=== PATIENT | female | born 1930 | race Caucasian/White ===

== ENCOUNTER → 2016-10-04 | Outpatient (CLI) | payer MEDICARE, OTHER ==
[~2016-10-04] MED LIST: AROM1FL. PO; ASPI-917 PO; CALC750T4 PO; NAPR220T61 PO; POLY17PO18 PO; TRAM50TA53 PO
== END ==
LOC: WC.BC 10:34
DX: Z12.31 Encounter for screening mammogram for malignant neoplasm of breast (principal)
CPT/HCPCS: 77063; G0202

== ENCOUNTER 2018-01-20 15:06 | Inpatient (IN) ==
--- OUTSIDE RECORDS SUMMARY | 2018-01-20 18:35 | External Medical Summary ---
:1930 Author Organization [facility]. Summary purpose CCDA Sent to [facility] Chief Complaint and Reason for Visit Admit Diagnosis 1 E03.0 Problem list No authorized problems tracked for continuity of care are available for this visit. Encounters No authorized problems tracked for encounter diagnoses are available for this visit. Medications No medications recorded for this patient visit Allergies, adverse reactions, alerts Allergen Category Ingredient Status Reaction Severity Onset No Known Allergies No Known Allergies No Known Allergies Active Immunizations No immunizations recorded for this patient visit Relevant diagnostic tests and/or laboratory data No authorized results are available for this patient visit History of procedures No procedures recorded for this patient visit. Functional status No functional or cognitive status observations are available for this visit. Vital signs No authorized vital signs are available for this visit. Social history No Social History or smoking status observations were recorded for this visit. ( Unknown if ever smoked.) Treatment Plan No treatment plan text is available for this visit. Hospital discharge instructions No discharge instruction text is available for this visit.
--- OUTSIDE RECORDS SUMMARY | 2018-01-20 18:35 | External Medical Summary | Referral Summary ---
:[address] [facility] Address [address] [place] [address] Care Team Providers Name Role Phone Caty Gipson Primary Care Physician Encounter VC Date(s): 07/24/17 - 07/24/[address] [facility] [address] [place] [address], [place] [address] Discharge Disposition: 01-Home or Self Care Attending Physician: Caty Gipson MD Admitting Physician: Caty Gipson MD Vital Signs Most recent to oldest [Reference Range]: 1 Temperature Temporal Artery [36.3-37.8 degC] 36.2 degC *LOW* (07/24/17 12:36 PM) Peripheral Pulse Rate [60-100 bpm] 63 bpm (07/24/17 10:20 AM) Heart Rate Monitored [60-100 bpm] 66 bpm (07/24/17 3:24 PM) Respiratory Rate [14-20 br/min] 16 br/min (07/24/17 3:24 PM) Blood Pressure [90-140/60-90 mmHg] 110/59 mmHg (07/24/17 3:24 PM) Mean Arterial Pressure, Cuff 79 mmHg (07/24/17 3:24 PM) SpO2 94 % (07/24/17 3:24 PM) Problem List Condition Effective Dates Status Health Status Informant Allergies(Confirmed) Active Arthritis(Confirmed) Active breast lump(Confirmed)1999 Active Hyperlipidemia(Confirmed) Active Osteoporosis(Confirmed) Active 1breast biopsy, benign 1999 Allergies, Adverse Reactions, Alerts No Known Medication Allergies Medications aspirin 81 mg oral delayed release tablet 81 mg 1 tabs, Oral, Aspir-81 81 mg tablet, delayed release every day 1 every other day. Start Date: 01/05/16 Status: Orderedatenolol 25 mg oral tablet 50 mg 2 tabs, Oral, Daily Start Date: 01/05/16 Status: OrderedtraMADol 25 mg, Oral, 0 Refill(s) Start Date: 07/24/17 Status: Orderedtriamterene-hydrochlorothiazide 37.5 mg-25 mg oral capsule 0.5 tabs, Oral, Daily, 0 Refill(s) Start Date: 07/24/17 Status: Ordered Results Hematology Most recent to oldest [Reference Range]: 1 WBC [4.8-10.8 10*3/uL] 14.1 10*3/uL *HI* (07/24/17 9:40 AM) RBC [4.00-5.20] 5.10 (07/24/17 9:40 AM) Hgb [12.0-16.0 gm/dL] 15.3 gm/dL (07/24/17 9:40 AM) Hct [37.0-47.0 %] 45.3 % (07/24/17 9:40 AM) MCV [82.0-99.0 fL] 88.8 fL (07/24/17 9:40 AM) MCH [27.0-32.0 pg] 30.0 pg (07/24/17 9:40 AM) MCHC [32.0-36.0 gm/dL] 33.8 gm/dL (07/24/17 9:40 AM) RDW [11.5-14.5 %] 15.2 % *HI* (07/24/17 9:40 AM) Platelet [150-400 10*3/uL] 251 10*3/uL (07/24/17 9:40 AM) MPV [9.4-12.4 fL] 9.7 fL (07/24/17 9:40 AM) Immature Granulocytes [0.0-1.0 %] 0.4 % (07/24/17 9:40 AM) Neutrophils [51-75 %] 76 % *HI* (07/24/17 9:40 AM) Lymphocytes [20-46 %] 17 % *LOW* (07/24/17 9:40 AM) Monocytes [4-11 %] 6 % (07/24/17 9:40 AM) Eosinophils [0-4 %] 0 % (07/24/17 9:40 AM) Basophils [0-2 %] 0 % (07/24/17 9:40 AM) Neutro Absolute [1.90-7.00] 10.73 *HI* (07/24/17 9:40 AM) Lymph Absolute [0.80-3.30] 2.36 (07/24/17 9:40 AM) [place] Absolute [0.30-1.00] 0.83 (07/24/17 9:40 AM) Eos Absolute [0.00-0.50] 0.06 (07/24/17 9:40 AM) Baso Absolute [0.00-0.20] 0.03 (07/24/17 9:40 AM) Nucleated RBC Automated [0 /100 WBC] 0.0 /100 WBC (07/24/17 9:40 AM) Coagulation Most recent to oldest [Reference Range]: 1 INR [0.9-1.2] 1.1 (07/24/17 9:40 AM) PTT [25.0-35.0 seconds] 31.9 seconds (07/24/17 9:40 AM) Procedures Procedure Date Related Diagnosis Body Site Percutaneous vertebral augmentation, including 07/24/17 cavity creation (fracture reduction and bone biopsy included when performed) using mechanical device (eg, kyphoplasty), 1 vertebral body, unilateral or bilateral cannulation, inclusive of all imaging guidance Hip joint1 08/24/16 Knee replacement 2012 laparoscopic cholecystectomy2 2012 Cataract extraction 2002 breast biopsy, benign3 1999 Hysterectomy 1970 Appendectomy 1952 [id number]. See [employer].3breast lump 1999. Social History Social History Type Response Smoking Status Never smoker entered on: 01/05/16
[2018-01-20] MEDS ORDERED: WARFARIN - PHARMACY CONSULT MC ONE (18:42)
[2018-01-20 18:52] VITALS: BMI 23.6
--- NOTE | 2018-01-20 18:59 | IRU History & Physical Report ---
HPI IRU Date: Date: 01/20/18 Time: 1844 Chief complaint: I'm weak on my left side HPI: Ms. German Peguero is a very pleasant 87-year-old female from [place], [place]. Referring physician is Dinora Braun MD and her primary care physician is Caty Gipson M.D. in [place]. She lives independently in [place], [place] at [address] for the last eight years. She has been very active. She even [place] her bicycle [place] [employer] [place]. She was last spoken with by her neighbor on 01/15/2018 at 7 PM. The next morning she called a friend but she "did not sound right." Mrs. Peguero was asking repetitive questions and her voice was different. Despite that , apparently the patient got in her swimsuit and rode her bicycle to [facility] where the staff noticed that she was not behaving normally. She appeared to be pale and had to be helped down off the bicycle. EMS was contacted and she was transferred to [facility]. At that location, a right middle cerebral artery ischemic stroke was identified. She was taken urgently for thrombectomy. Patient does have history of paroxysmal atrial fibrillation and previous TIA. She was off her warfarin the past but did not want to take this because she feels it is "rat poison." At this time she is on warfarin per recommendation of Dr. Araujo. She is agreeable to take it at the present time. Prior to this event , she was on aspirin only. In addition the patient apparently has a history of probable patent foramen ovale as well as grade 1 diastolic dysfunction, chronic hypertension, chronic back pain with history of compression fractures, hypertriglyceridemia and leukocytosis. The following is a summary of studies obtained in [place]: She is admitted to [facility] on 01/16/2018. On January [address] scan showed no evidence of intracranial hemorrhage. There was nonspecific low-density foci in the white matter representing age-indeterminate microvascular changes along with generalized parenchymal volume loss. There was a hyperdense MCA sign in the right side versus intracranial atherosclerotic disease. On 01/16/2018 ultrasound of carotids showed no significant stenoses. CT angiogram on January 16, 2018 demonstrated large vessel occlusion involving the distal M1 segment on the right. Cerebral perfusion analysis demonstrated large right MCA distribution penumbra. MRI on 01/17/2018 demonstrated scattered areas of acute ischemia involving right middle cerebral artery distribution without overt evidence of hemorrhagic conversion. She was seen by Dr. Alex Araujo for cardiology and patient states that she has seen him on several occasions in the past as well. Prior to the current event the patient was independent for all activities required a grab bar for toileting and some transfers. She was very active having been involved in bicycle riding etc. on a regular basis. There are no steps necessary for her to climb at home. She does have a walker at home but does not use it. She lives independently. Current level of functioning is as follows: She requires minimum assistance for eating, supervision for grooming, maximum assistance for bathing and lower body dressing, moderate assistance for upper body dressing, total assistance for toileting and toilet transfers. She is unable to ambulate at the present time and has a flaccid left upper extremity. Also has cognitive impairment. She has significant left sided neglect. Left lower extremity is weak but she can lift it up off the bed. The patient did require intravenous amiodarone because of her atrial fibrillation with rapid ventricular response. She is on subcutaneous Lovenox and has been converted to oral amiodarone. Telemetry by the transfer service indicates that she is in sinus mechanism at present. Recommendations from [facility] indicate that she is to be on amiodarone 400 mg twice daily for 1 week then 20 mg twice daily. In addition they recommend initiating warfarin with goal of 2-3. When the INR is at that range, recommendations are to discontinue Lovenox and discontinue aspirin. Echocardiogram in [place] apparently showed preserved ejection fraction but with possible PFO with normal pulmonary artery pressures and normal right ventricular chamber size. It is not clear to me why she is not on a lipid agent at the present time. Patient states the date is Saturday (it is Saturday) but does know the year is 2018. Patient's [id number] is present throughout the interview and examination. I asked the patient specifically if she desired resuscitation in the event of an arrest and she states that she does not. The following medical conditions are noted and require active monitoring and/or management: 1. Acute right MCA cardio-embolic ischemic CVA with the following deficits: LUE is flaccid, left lower extremity is weak, cognitive impairment which is new, swallowing concerns requiring supervision. 2. Atrial fibrillation: paroxysmal 3. Hypertension 4. Diastolic heart failure The following therapies will be needed: 1. Physical therapy: for transfers and ambulation and stairs. 2. Occupational therapy: for ADL's and transfers. 3. Medical management: for the above conditions. 4. 24 hour Rehabilitation Nursing to monitor and address the following: To closely monitor her cardiac arrhythmia, diastolic dysfunction, neurologic status , blood pressures and to reduce risk of skin breakdown. PFSH 1. Benign essential hypertension 2. Paroxysmal atrial fibrillation 3. Recent cerebrovascular accident involving right middle cerebral artery affecting left side of body 4. Compression fracture of lumbar spine status post vertebroplasty 5. Grade 1 diastolic dysfunction 6. Patent foramen ovale, suspected Surgical History: 1. Bilateral total knee replacements. 2. Left total hip replacement. 3. Cholecystectomy. 4. T and A. 5. Appendectomy. 6. Hysterectomy. 7. Cystocele repair. 8. Left cataract removal Family History: Patient's father from old age. Her mother of cancer. - Social History Smoking status: Never smoker Substance use type: does not use Alcohol intake: never Alcohol intake frequency: does not drink Housing: apartment (duplex) Household members: none Current residence: Apartment/Private Home Social history: Patient's in 2005. 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 She has lived at [facility] in a duplex by herself and is handling her own finances for the past 8 years or so. Review of Systems - Constitutional Constitutional: Present: fatigue. Absent: anorexia, chills, fever(s), headache( s), lethargy, malaise, night sweats, weakness, weight gain, weight loss - EEMAT Eyes: Absent: blurry vision, change in vision, diplopia Mouth/Throat: Absent: changes in swallowing, painful swallowing, change in taste , bleeding gums, change in voice - Cardiovascular Cardiovascular: Absent: chest pain, palpitations, syncope, dyspnea on exertion, orthopnea, edema, cyanosis, heart murmur Rhythm: Present: abnormal rhythm (history of paroxysmal atrial fibrillation.) Vascular: Absent: intermittent claudication, pedal edema, unilateral swelling - Respiratory Respiratory: Absent: cough, dyspnea, hemoptysis, dyspnea on exertion, wheezing, pain on inspiration, chest congestion, excessive phlegm production - Gastrointestinal Gastrointestinal: Absent: abdominal pain, change in bowel habits, constipation, diarrhea, dyspepsia, dysphagia, early satiety, hematochezia, melena, nausea, vomiting - Genitourinary Genitourinary: Present: difficulty urinating - Musculoskeletal Musculoskeletal: Absent: abnormal gait, arthralgias, back pain, joint swelling, limited range of motion, muscle weakness - Integumentary/Breasts Integumentary: Absent: alopecia, erythema, lesions, pruritus, rash, jaundice - Neurological Neurological: Present: focal weakness. Absent: abnormal gait, abnormal movements, abnormal speech, confusion, convulsions, dizziness, frequent falls, headache(s), loss of vision, memory loss, numbness, paresthesias, tremor(s) - Psychiatric Psychiatric: Absent: abnormal sleep pattern, anxiety, depression - Endocrine Endocrine: Absent: cold intolerance, flushing, heat intolerance, palpitations - Hematologic/Lymphatic Hematologic/Lymphatic: Absent: easy bleeding, easy bruising, lymphadenopathy - Allergic/Immunologic Allergic/Immunologic: Absent: urticaria Medications Home Medications Medication Instructions Recorded Confirmed Type Acetaminophen [Tylenol] 650 mg PO Q4HR PRN 01/20/18 01/20/18 History Aspirin *EC* [Ecotrin] 1 tab PO DAILY 01/20/18 01/20/18 History Atenolol [Tenormin] 1 tab PO DAILY 01/20/18 01/20/18 History Docusate Sodium [Colace] 1 cap PO DAILY 01/20/18 01/20/18 History Enoxaparin [Lovenox] 40 mg SQ DAILY 01/20/18 01/20/18 History Sertraline HCl [Zoloft] 50 mg PO DAILY 01/20/18 01/20/18 History Tamsulosin [Flomax] 0.4 mg PO HS 01/20/18 01/20/18 History Warfarin Sodium [Coumadin] 5 mg PO HS 01/20/18 01/20/18 History Allergies Allergy/AdvReac Type Severity Reaction Status Date / Time No Known Allergies Allergy Unverified 10/27/12 15:17 Results IRU - Labs Labs: I have reviewed outside records from [facility]. Exam - Constitutional Present: no acute distress, well nourished, well developed, average body habitus , cooperative Comments: Patient is hard of hearing. - Routine HEENT Exam Head: Present: normocephalic, atraumatic. Absent: cushingoid faces, abrasion, laceration, hematoma Eye: Present: EOMI, PERRL. Absent: conjunctival icterus, scleral injection, periorbital swelling, nystagmus ENT: Present: mucous membranes dry, oropharynx clear, dentition normal - Routine Neck Exam Present: supple, full ROM, trachea midline. Absent: lymphadenopathy, thyromegaly, tenderness, swelling - Routine Chest/Breast/Axilla Exam Chest wall: Absent: tenderness, mass Axillae: Absent: lymphadenopathy, mass - Routine Respiratory Exam Present: CTA bilaterally. Absent: accessory muscle use, decreased breath sounds , prolonged expiratory phase, rales, respiratory distress, rhonchi, stridor, wheezes, crackles, distant breath sounds - Routine Cardiovascular Exam Present: RRR (at present her heart rhythm appears to be regular.), S1, S2, no murmur. Absent: gallop, S3, S4, click, irregular rhythm - Routine Abdominal Exam Present: soft, normoactive bowel sounds, non distended, non tender. Absent: rebound, guarding, firm, rigid, organomegaly, mass, hernia, wound - Routine Extremities Exam Present: no edema, non tender, pulses intact, normal capillary refill. Absent: cyanosis, clubbing - Routine Back/Spine/Pelvis Exam Back/Spine: Present: full ROM. Absent: scoliosis, kyphosis - Routine Skin Exam Present: intact, dry, warm. Absent: cyanosis, erythema, pallor, mottling, petechiae, urticaria, lesions, jaundice - Routine Neurological Exam Present: alert, motor deficit (left-sided neglect noted. Left upper extremity flaccid. Left lower extremity week. Can lift up left leg actively although not against resistance. Dorsiflexion and plantar flexion are reduced at left ankle.) , moving all extremities, facial asymmetry (slight only.). Absent: oriented X3 , CN II-XII intact (Slight droop of left side of mouth. ), normal speech ( stumbles over "[employer]") - Routine Psychiatric Exam Present: normal affect, normal thought process, cooperative. Absent: depressed , anxious Sepsis Assessment - Evaluation Severe Sepsis: none seen IRU A/P (1) Ischemic cerebrovascular accident (CVA) Current visit: Yes Status: Acute Per recommendation of Dr. Araujo, we will continue aspirin and Lovenox for the time being as well as initiate warfarin therapy. When the INR is 2-3 we will discontinue the aspirin and Lovenox. In addition we will initiate physical therapy, occupational therapy and speech therapy for a multidisciplinary approach to her recovery. (2) Hypertension Qualifiers: Hypertension type: essential hypertension Qualified Code(s): I10 - Essential (primary) hypertension Current visit: Yes Status: Chronic (3) Diastolic heart failure Qualifiers: Heart failure chronicity: chronic Qualified Code(s): I50.32 - Chronic diastolic (congestive) heart failure Current visit: Yes Status: Chronic Her lungs are clear. Diagnosis is based on echocardiogram. (4) Paroxysmal atrial fibrillation Current visit: Yes Status: Chronic Patient has history of paroxysmal atrial fibrillation. She has had rapid ventricular response in [place] which is now improved. Most recent monitor indicates normal sinus mechanism. We will monitor carefully and initiate telemetry. (5) Low back pain Qualifiers: Chronicity: chronic Back pain laterality: midline Sciatica presence: without sciatica Qualified Code(s): M54.5 - Low back pain; G89.29 - Other chronic pain Current visit: Yes Status: Chronic Has history of chronic low back pain which persists at present. She does have history of compression fracture status post vertebroplasty. Most recent MRI was in November 2017 failing to reveal an acute finding. DVT Prophylaxis: SCD's, Lovenox, Coumadin Resuscitation Status: Do Not Resuscitate - Course Hospital Course: Golden Rodriguez MD: - Interventions to Obtain Goals Goals Progress/Modifications: This patient has suffered a recent cardioembolic ischemic stroke involving the right middle cerebral artery. She is status post thrombectomy. Deficits include pocketing of food in the left side of her mouth, very mild left facial droop, flaccidity of left upper extremity, weakness of left lower extremity, and reduced cognition. We will involve physical therapy, occupational therapy and speech therapy for a multidisciplinary approach. She is medically complex in view of her atrial fibrillation and initiation of anticoagulant therapy. She is at risk for hypertension or hypotension as well as requiring monitoring of her cardiac rhythm, diastolic dysfunction and blood pressures.
--- NOTE | 2018-01-20 19:14 | IRU 24Hr Post Admit Eval ---
24 Hr Post Admission Physical - Relevant Changes Relevant Changes: No Reviewed: I have reviewed the patient's information and concur with the finding and results of the pre-admission screen. Certification: I certify the patient for rehabilitation. - Patient Condition (1) Ischemic cerebrovascular accident (CVA) Status: Acute Code(s): I63.9 - Cerebral infarction, unspecified Classification: Present on IRF Admission, IRF Tx That Should Address Diagnosis, Diagnosis Requiring Medical Follow Up (2) Hypertension Status: Chronic Qualifiers: Hypertension type: essential hypertension Qualified Code(s): I10 - Essential (primary) hypertension Code(s): I10 - Essential (primary) hypertension Classification: Present on IRF Admission, IRF Tx That Should Address Diagnosis, Diagnosis Requiring Medical Follow Up (3) Diastolic heart failure Status: Chronic Qualifiers: Heart failure chronicity: chronic Qualified Code(s): I50.32 - Chronic diastolic (congestive) heart failure Code(s): I50.30 - Unspecified diastolic (congestive) heart failure Classification: Present on IRF Admission, IRF Tx That Should Address Diagnosis, Diagnosis Requiring Medical Follow Up (4) Paroxysmal atrial fibrillation Status: Chronic Code(s): I48.0 - Paroxysmal atrial fibrillation Classification: IRF Tx That Should Address Diagnosis, Diagnosis Requiring Medical Follow Up (5) Low back pain Status: Chronic Qualifiers: Chronicity: chronic Back pain laterality: midline Sciatica presence: without sciatica Qualified Code(s): M54.5 - Low back pain; G89.29 - Other chronic pain Code(s): M54.5 - Low back pain Classification: Present on IRF Admission, IRF Tx That Should Address Diagnosis - Prior Functional Status Lives With: Alone Residence Type: Apartment/Private Home Assitive Devices: None Prior Functional Status: Indep. at home or school, Indep. w/ IADL - Current Functional Status Current Level of Function: Current level of functioning is as follows: She requires minimum assistance for eating, supervision for grooming, maximum assistance for bathing and lower body dressing, moderate assistance for upper body dressing, total assistance for toileting and toilet transfers. She is unable to ambulate at the present time and has a flaccid left upper extremity. Also has cognitive impairment. She has significant left sided neglect. Left lower extremity is weak but she can lift it up off the bed. Failed Alternative Therapy: Arrived from Acute Care Patient Requirements: The patient requires oversight by rehabilitation physician to manage their rehabilitation treatment plan and multidisciplinary approach to care that can only be provided in an IRF and requires a multidisciplinary approach to care, provided by professional PTs, OTs, STs, dieticians, RTs, rehabilitation nurses and is not available in lesser levels of care. Limitations Req: Mobility Impairment, ADL Impairment, Cognitive Impairment Speech Therapy Minutes: 60 Physical Therapy Minutes: 60 Occupational Therapy Minutes: 60 Therapy: The patient is to receive therapy at least 5 days a week. ROM Deficit: Left Upper Extremity - Complications/Comorbidities Impact on Functional Outcomes: This patient's impaired cognition may negatively impact her functional outcome. Barriers to Discharge: Weakness, Balance, Endurance, Comprehension - Plan to Avoid Complications Plan to Avoid Complications: The patient cannot receive this care in a lesser intensive setting such as [facility] or Outpatient Therapy due to the patient requiring the following : This patient requires close 24 hour rehabilitation nursing monitoring of her cardiac status to include cardiac rhythm analysis, evidence for worsening diastolic heart failure, and blood pressure management. She requires supervision with swallowing because of her tendency to pocket food in the left cheek. She requires a multidisciplinary approach with physical therapy, occupational therapy and speech therapy with medical supervision in view of these medical issues. This cannot be provided adequately at a lesser intensive level.
[2018-01-20] MEDS: ACETAMINOPHEN 325 MG TABLET PO PRN (21:31)
[2018-01-20] MEDS: AMIODARONE 200 MG TABLET PO SCH (21:31)
[2018-01-20] MEDS: TAMSULOSIN 0.4 MG CAPSULE PO SCH (21:32)
[2018-01-20] MEDS ORDERED: FALL RISK - PHARMACY CONSULT MC ONE (23:37)
[2018-01-21] MEDS ORDERED: HALOPERIDOL 5 MG/ML INJECTION IVP ONE (01:50)
[2018-01-21] MEDS ORDERED: DOCUSATE SODIUM 100 MG CAPSULE PO SCH (09:00)
[2018-01-21] MEDS ORDERED: ASPIRIN *EC* 325 MG TABLET PO SCH (09:00)
[2018-01-21] MEDS ORDERED: ENOXAPARIN 40 MG/0.4 ML INJECTION SQ SCH (09:00)
[2018-01-21] MEDS: SERTRALINE 50 MG TABLET PO SCH (09:03)
[2018-01-21] MEDS: ATENOLOL 50 MG TABLET PO SCH (09:04)
[2018-01-21] MEDS: AMIODARONE 200 MG TABLET PO SCH ×2 (09:04→22:42)
--- NOTE | 2018-01-21 10:20 | IRU Progress Note ---
- Subjective/Serverity of Illness Date: 01/21/18 Ms. Peguero was reassessed in her room in IRU. She was hard to awaken. She had a difficult night and required one on one nursing monitoring. She was confused and seemed to have visual hallucinations, requiring the use of Haldol. Today I was able to awaken her but she is not able to answer questions. She apparently did not sleep last night. Update on medical issues as follows: 1. Acute right MCA cardio-embolic ischemic CVA with the following deficits: No change in neurologic status. She is on warfarin with pharmacy to dose and monitor. 2. Atrial fibrillation: paroxysmal. I reviewed telemetry strips. She remains in normal sinus mechanism at present. 3. Hypertension: Her blood pressures remained stable at present. No overt hypotension nor hypertension identified at present. 4. Diastolic heart failure: Patient is stable in this regard. 5. Agitation, confusion, hallucinations: Etiology not clear but probably related to the CVA. Continue to monitor. 6. Leukocytosis: Patient's white count is 12,000 for uncertain reasons. No overt evidence of infection at present. Exam Vital Signs: Temperature 96.6 F L 01/21/18 08:00 Pulse Rate 59 L 01/21/18 08:00 Respiratory Rate 14 01/21/18 08:00 Blood Pressure 117/63 01/21/18 08:00 Pulse Oximetry 93 01/21/18 08:00 Height/Weight/BMI: Height 1.57 m Weight 58.6 kg Body Mass Index 23.6 - Constitutional Present: well nourished, well developed, average body habitus, agitated (last night), somnolent (currently) - Routine HEENT Exam Head: Present: normocephalic Eye: Present: EOMI ENT: Present: mucous membranes dry - Routine Neck Exam Present: supple - Routine Respiratory Exam Present: CTA bilaterally. Absent: wheezes - Routine Cardiovascular Exam Present: RRR, S1, S2, murmur - Routine Abdominal Exam Present: soft, normoactive bowel sounds, non distended. Absent: tenderness - Routine Extremities Exam Present: no edema - Routine Skin Exam Present: dry, warm - Routine Neurological Exam Present: motor deficit (LUE flaccid. Unable to assess her left leg at present. ) , altered mental status. Absent: alert, oriented X3, CN II-XII intact, hearing grossly intact (very hard of hearing. ) - Routine Psychiatric Exam Present: visual hallucinations (last night she thought she saw family members here.). Absent: normal thought process Results IRU - Labs Labs: I reviewed laboratory findings and other chart data. IRU A/P (1) Ischemic cerebrovascular accident (CVA) Current visit: Yes Status: Acute Patient has experienced a thromboembolic stroke affecting right middle cerebral artery. She is status post thrombectomy. Per recommendation of Dr. Araujo, she is on warfarin. She is also on prophylactic Lovenox and aspirin until INR is therapeutic. She developed visual hallucinations and agitation last night requiring close monitoring. Today she is somnolent but able to be awakened. She is not oriented. (2) Hypertension Qualifiers: Hypertension type: essential hypertension Qualified Code(s): I10 - Essential (primary) hypertension Current visit: Yes Status: Chronic Her blood pressures appear to be adequately controlled at present. (3) Diastolic heart failure Qualifiers: Heart failure chronicity: chronic Qualified Code(s): I50.32 - Chronic diastolic (congestive) heart failure Current visit: Yes Status: Chronic (4) Paroxysmal atrial fibrillation Current visit: Yes Status: Chronic Clinically as well as on telemetry, the patient is in sinus mechanism. (5) Low back pain Qualifiers: Chronicity: chronic Back pain laterality: midline Sciatica presence: without sciatica Qualified Code(s): M54.5 - Low back pain; G89.29 - Other chronic pain Current visit: Yes Status: Chronic DVT Prophylaxis: SCD's, Lovenox, Coumadin Resuscitation Status: Do Not Resuscitate - Course Hospital Course: Golden Rodriguez MD: 01/21/18 10:23 Difficult night with hallucinations and agitation. Somnolence this morning. Blood pressures are stable. White count elevated. Neurologically no change. - Interventions to Obtain Goals PT Treatment Plan: Balance/Proprioception, Functional Activities, Gait Training , Patient/Family Education, Therapeutic Exercise OT Treatment Plan: ADL (Basic Care), Balance Training, IADL, Pt./Family Education, Ther. Exercise for ADL Goals Progress/Modifications: Etiology of the patient's confusion and agitation is not clear. Likely this is related to her CVA. She does not display other evidence of seizure nor other evidence of neurologic change. Continues to have flaccidity of left upper extremity. I'm unable to fully assess her left lower extremity because of lack of ability to follow commands. Her vital signs are stable. Her white count is minimally elevated. No definite evidence of infection at present. We will attempt therapy today to reset her sleep schedule so that she can sleep at night. Please note that the patient's individual plan of care was developed and documented today, requiring review of therapy notes, medical conditions and anticipated functional recovery. This required additional medical decision making with regard to interaction of the patient's medical issues with the anticipated functional recovery. Please see separate document
--- NOTE | 2018-01-21 10:29 | IRU Plan of Care ---
[facility] Overall Plan of Care - Date Date: 01/21/18 - Patient Impairments (1) Ischemic cerebrovascular accident (CVA) Code(s): I63.9 - Cerebral infarction, unspecified Status: Acute Classification: Present on IRF Admission, IRF Tx That Should Address Diagnosis, Diagnosis Requiring Medical Follow Up (2) Hypertension Qualifiers: Hypertension type: essential hypertension Qualified Code(s): I10 - Essential (primary) hypertension Code(s): I10 - Essential (primary) hypertension Status: Chronic Classification: Present on IRF Admission, IRF Tx That Should Address Diagnosis, Diagnosis Requiring Medical Follow Up (3) Diastolic heart failure Qualifiers: Heart failure chronicity: chronic Qualified Code(s): I50.32 - Chronic diastolic (congestive) heart failure Code(s): I50.30 - Unspecified diastolic (congestive) heart failure Status: Chronic Classification: Present on IRF Admission, IRF Tx That Should Address Diagnosis, Diagnosis Requiring Medical Follow Up (4) Paroxysmal atrial fibrillation Code(s): I48.0 - Paroxysmal atrial fibrillation Status: Chronic Classification: IRF Tx That Should Address Diagnosis, Diagnosis Requiring Medical Follow Up (5) Low back pain Qualifiers: Chronicity: chronic Back pain laterality: midline Sciatica presence: without sciatica Qualified Code(s): M54.5 - Low back pain; G89.29 - Other chronic pain Code(s): M54.5 - Low back pain Status: Chronic Classification: Present on IRF Admission, IRF Tx That Should Address Diagnosis (6) Leukocytosis Qualifiers: Leukocytosis type: unspecified Qualified Code(s): D72.829 - Elevated white blood cell count, unspecified Code(s): D72.829 - Elevated white blood cell count, unspecified Status: Acute Classification: Present on IRF Admission, IRF Tx That Should Address Diagnosis - Relevant Changes Relevant Changes: No Reviewed: I have reviewed the patient's information and concur with the finding and results of the pre-admission screen. Certification: I certify the patient for rehabilitation. - Medical Prognosis Medical Prognosis: Good Vital Signs: Last Vital Signs Temp 96.6 F L 01/21/18 08:00 Pulse 59 L 01/21/18 08:00 Resp 14 01/21/18 08:00 BP 117/63 01/21/18 08:00 Pulse Ox 93 01/21/18 08:00 - Anticipated Interventions Anticipated Interventions: The patient requires inpatient IRF care for PT, OT, and/or ST for residuals remaining from acute right hemispheric cardio-embolic CVA resulting in muscular weakness and strength deficits. An individualized overall plan of care has been developed after careful review of the patient's preadmission screening, post admission physician evaluation and assessments of all therapy disciplines and/ or other pertinent clinicians involved in treating the patient. This indicates medical necessity and rehabilitation necessity have been established through a thorough review of all available medical information. Strength Deficits: Left Upper Extremity, Left Lower Extremity - Current Functional Status Failed Alternative Therapy: Arrived from Acute Care Patient Requires: The patient requires oversight by rehabilitation physician to manage their rehabilitation treatment plan and multidisciplinary approach to care that can only be provided in an IRF and requires a multidisciplinary approach to care, provided by professional PTs, OTs, STs, rehabilitation nurses, and may require STs, dieticians, and RTS. This is not available in lesser levels of care. Speech-Language Pathology Minutes: 60 Physical Therapy Minutes: 60 Occupational Therapy Minutes: 60 Therapy: The patient is to receive therapy at least 5 days a week. - Anticipated LOS/Outcomes Anticipated Functional Outcome: It is anticipated the patient will be neurologically stable and able to participate adequately in therapy. It is anticipated the patient will be out of perform ADLs with modified independent level of function or better. Expected functional improvements include: -- Modified independant to independant ambulation with assistive device -- Modified independant to independant ADL's with or without assistive device -- Return to pre-morbid level of mobility -- Maximize level of mobility and ADL's to decrease burden on any caregiver involved with this patient's care Anticipated Length of Stay (days): 14 Anticipated DC Destination: Home, Self Care, Home Health Service Home Safety Plan: The patient will be provided with the development of a Home Safety Plan for return to a home or home-like environment and and to ensure safety post discharge. - Plan to Avoid Complications Barriers to Attaining Goals: Weakness, Endurance, Comprehension Plan to Avoid Complications: The patient cannot receive this care in a lesser intensive setting such as Residential or Outpatient Therapy due to the patient requiring the following : This patient requires close monitoring of her cardiac rhythm in view of her paroxysmal atrial fibrillation which at times has required intravenous intervention. She requires close monitoring of her blood pressures, diastolic heart failure which currently stable as well as a multidisciplinary approach with speech therapy, occupational therapy and physical therapy. Because of her medically-complex situation with stroke and atrial fibrillation, she requires medical supervision.
--- NOTE | 2018-01-21 11:39 | Pharmacy Consult ---
Pharmacy Consult-Warfarin - Laboratory Information 01/20/18 01/21/18 01/21/18 19:15 09:38 09:38 Hgb 11.4 L Hct 33.1 L INR 2.35 H 2.95 H - Consult Information INR is in target range. Warfarin 2.5mg po ordered for noon. Will continue to monitor. Thank you.
[2018-01-21] MEDS ORDERED: WARFARIN 2.5 MG TABLET PO SCH (12:00)
--- NOTE | 2018-01-21 13:42 | Consult Note ---
Consult Information - Data of Consult Consult date: 01/21/18 Requesting Physician: Golden Rodriguez MD Primary Care Provider: Caty Gipson MD - Consult Narrative Reason for consult: medical management, right MCA CVA, a-fib History of present illness: Consuelo Peguero is an 87-year-old patient of Dr. Caty Gipson, in [place], who was directly admitted to IRU on 01/20/18 for therapies to improve function ablilities and strength following a recent CVA. She reportedly lives independently in [place] and is very active, frequently riding her bike to the [facility] where she does water aerobics weekly. On the morning of , she spoke with a friend who thought she "did not sound right." as she was asking repetitive questions and her voice was different. Despite that, apparently, Ms. Peguero got her swimsuit on and rode her bicycle to the [facility] for her water aerobic class where the staff noticed that she was not behaving normally. She reportedly appeared to be pale and had to be helped down off the bicycle. EMS was contacted and she was transferred to [facility] for further evaluation. On arrival to [facility], she was noted to have a left facial droop. Initial CT head was concerning for possible right sided CVA and she was admitted to Dr. Braun. NIH on admission was 5. Further imaging revealed an acute ischemic right MCA CVA for which she underwent successful thrombectomy for on 01/16/18. She has a known history of paroxysmal a -fib and was not anticoagulated as she reported being previously being unable to tolerate Coumadin and unable to afford other alternatives. During her acute hospitalization, she was found to be in a-fib with RVR. She was started on IV amiodarone with improvement and later changed to oral amiodarone. Unfortunately , shortly after starting the oral amiodarone, she required an additional dose of IV amiodarone due to recurrence of RVR. She was also started on Lovenox at that time for anticoagulation after discussion with the family regarding the risks and benefits of treatment, as she had only been on daily aspirin 81mg at home. In addition to the paroxysmal a-fib, she also has a history of prior TIA. Prior to discharge from [facility], per the recommendation of Dr. Araujo, she was started on Coumadin for long-term anticoagulation. Echocardiogram during her hospitalization revealed probable patent foramen ovale as well as grade 1 diastolic dysfunction with an EF of 65-70%. She was also found to have hypertriglyceridemia at 391 with a total cholesterol of 173. In addition to her previously listed medical conditions, she has a history of chronic hypertension and chronic back pain with known compression fractures. She was transferred to [facility] for further strengthening and increased functional abilities under the care of Dr. Rodriguez. The hospitalist service was consulted for medical management. 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 Paroxysmal A-fib. Hypertension. Probable PFO. History of urinary retention. Diastolic cardiac dysfunction, grade I - EF 70-75%. Depression. Constipation. High fall risk. History of chronic compression fractures with chronic back pain. Hyperlipidemia. Surgical History: 1. Bilateral total knee replacements. 2. Left total hip replacement. 3. Cholecystectomy. 4. Tonsillectomy. 5. Appendectomy. 6. Thrombectomy secondary CVA - 01/16/18. 6. Hysterectomy. 7. Cystocele repair. 8. Left cataract removal Family History: Father - , old age. Mother - , unknown cancer. Family History: As Above - Social History Smoking status: Never smoker Substance use type: does not use Alcohol intake frequency: does not drink Housing: house Household members: none Current occupational status: retired Does patient use chewing tobacco?: No Current residence: Apartment/Private Home Social history: PCP - Dr. Caty Gipson Cardio - Dr. Araujo. Neuro - Dr. Nascimento. Review of Systems Review of systems: ROS limited due to patient's increased somnolence. - Constitutional Constitutional: Present: fatigue. Absent: fever(s) - EENMT Eyes: Absent: change in vision, photophobia Nose: Absent: nosebleeds Mouth/Throat: Absent: changes in swallowing EENMT Comments: Hearing aids present. - Cardiovascular Cardiovascular: Absent: chest pain, syncope, edema Rhythm: Present: abnormal rhythm Vascular: Absent: pallor of an extermity, pedal edema, unilateral swelling - Respiratory Respiratory: Absent: cough, dyspnea - Gastrointestinal Gastrointestinal: Present: constipation. Absent: abdominal pain, diarrhea, vomiting - Genitourinary Genitourinary: Present: urinary incontinence, other (urine retention). Absent: dysuria, flank pain, hematuria Menstruation: post menopausal - Musculoskeletal Musculoskeletal: Present: back pain (chronic), muscle weakness. Absent: deformity - Integumentary/Breasts Integumentary: Absent: rash - Neurological Neurological: Present: confusion, focal weakness (left sided). Absent: convulsions, headache(s) - Psychiatric Psychiatric: Present: behavioral changes, depression - Endocrine Endocrine: Absent: flushing - Hematologic/Lymphatic Hematologic/Lymphatic: Present: easy bruising - Allergic/Immunologic Allergic/Immunologic: Absent: seasonal rhinorrhea Medications Home Medications Medication Instructions Recorded Confirmed Type Acetaminophen [Tylenol] 650 mg PO Q4HR PRN 01/20/18 01/20/18 History Aspirin *EC* [Ecotrin] 1 tab PO DAILY 01/20/18 01/20/18 History Atenolol [Tenormin] 1 tab PO DAILY 01/20/18 01/20/18 History Docusate Sodium [Colace] 1 cap PO DAILY 01/20/18 01/20/18 History Enoxaparin [Lovenox] 40 mg SQ DAILY 01/20/18 01/20/18 History Sertraline HCl [Zoloft] 50 mg PO DAILY 01/20/18 01/20/18 History Tamsulosin [Flomax] 0.4 mg PO HS 01/20/18 01/20/18 History Warfarin Sodium [Coumadin] 5 mg PO HS 01/20/18 01/20/18 History Allergies Allergy/AdvReac Type Severity Reaction Status Date / Time No Known Allergies Allergy Verified 01/20/18 19:09 Exam Vital Signs: Temperature 96.6 F L 01/21/18 08:00 Pulse Rate 59 L 01/21/18 08:00 Respiratory Rate 14 01/21/18 08:00 Blood Pressure 117/63 01/21/18 08:00 Pulse Oximetry 93 01/21/18 08:00 Telemetry Rhythm: A-fib Height/Weight/BMI: Height 5 ft 2 in Weight 129 lb 3.054 oz Body Mass Index 23.6 Comments: Patient is seen while sleeping in her recliner. She arouses briefly with loud noises and touch. Nursing reports that she has been more somnolent today as she had increased behaviors last night with little rest and received haldol x 1 dose. - Constitutional Present: no acute distress, well nourished, well developed, thin, cooperative - Routine HEENT Exam Head: Present: normocephalic, atraumatic ENT: Present: mucous membranes moist - Routine Neck Exam Present: supple, trachea midline - Routine Chest/Breast/Axilla Exam Chest wall: Absent: pacemaker - Routine Respiratory Exam Present: CTA bilaterally. Absent: respiratory distress, wheezes - Routine Cardiovascular Exam Present: irregularly irregular - Routine Abdominal Exam Present: soft, normoactive bowel sounds, non distended - Routine Extremities Exam Present: no edema, pulses intact - Routine Skin Exam Present: intact, dry, warm Comments: Afebrile. - Routine Neurological Exam Present: sensory deficit (decreased sensation to left side.), hearing grossly intact, facial asymmetry (left facial droop) Increased confusion today with increased somnolence. - Routine Psychiatric Exam Present: cooperative Comments: Increased behaviors over the night requiring Haldol x 1 dose. Today, increased sedation. Results - Labs CBC & Chem 7: 01/21/18 09:38 01/21/18 09:38 - Impressions Imaging results prior to admission: 01/16/[address]: * No intracranial hemorrhage. * Non-specific low-density foci in the white matter may represent age- indeterminate microvascular changes. * Generalized parenchymal volume loss. * Possible hyperdense MCA sign seen on right vs. intracranial atherosclerotic disease. 01/16/18 US Carotid Survey: * No sonographic evidence of hemodynamically significant stenosis. * Minimal hyperchoic plaques in the bilateral carotid arterial systems, most prominent in carotid bulbs. 01/16/18 CTA: * Large vessel occlusion involving the distal M1 segment on the right with associated lange-white differentiation loss within the anterior right frontal lobe and insula suggestive of ischemic changes. 01/16/18 Cerebral Profusion Analysis: * Large right MCA distribution penumbra. 01/17/18 MRI Brain: * Scattered areas of acute ischemia involving right middle cerebral artery distribution without evidence of hemorrhagic conversion. * Generalized volume loss. * Moderate nonspecific white matter disease likely microvascular in nature. 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 Leukocytosis - present on admission. Anemia - present on admission. Anticoagulation with warfarin, therapeutic INR (goal between 2-3). Paroxysmal A-fib with history of RVR. Hypertension. Probable PFO. History of urinary retention. Diastolic cardiac dysfunction, grade I - EF 70-75%. Depression. Constipation. High fall risk. History of chronic compression fractures with chronic back pain. Hyperlipidemia. Plan - 01/21/18 Agree with admission to IRU for strengthening and improvement in functional abilities. Monitor closely as patient is a high fall risk. Labs on admission revealed leukocytosis (WBC 12.1). Will try and obtain UA now given increase in behaviors over night. Afebrile now. Mild anemia noted - monitor periodically throughout admission. No current signs of bleeding. Monitor for signs of bleeding with current anticoagulation. Started on amiodarone 400mg BID in [place] due to a-fib with occasional RVR. Currently rate controlled a-fib. Monitor closely on telemetry. Patient to continue amiodarone 400mg BID until 01/26/18 at which time she was be decreased to 200mg BID until follow up with Dr. Araujo following discharge from IRU. INR currently therapeutic at 2.95. Pharmacy to manage. INR to be monitor daily to ensure anticoagulation is between range 2-3. Seen and evaluated by speech and no diet changes recommended at this time. Monitor closely for signs of aspiration. Monitor daily blood pressure and heart rate closely. Goal blood pressure <180 SBP. Continue atenolol 50mg daily. Hydralazine PRN SBP >160 SBP. Monitor mood closely for signs of depression and behavioral changes. Continue Zoloft. Bowel motivation given history of constipation and no recent BM noted. Will recheck labs in AM to monitor blood counts, electrolytes and renal function. Upon discharge, patient's care to be returned to her PCP, Dr. Caty Gipson. Patient is a DNR. 01/21/2018-8:45 PM-I examined the patient independently. I reviewed this chart, the patient history, and the GLOVE BRUSHER's/PA's documented findings as above. We discussed and formulated the assessment and plan as above with the additions below.-Dr. Hernandez The patient was seen this evening in her room. She is sleeping soundly. I did not try to awaken her. Her nurse stated that last night she became very agitated and was trying to hit the nurses and trying to climb out the window. She was given Haldol and has been fairly somnolent most of the day. Her nurse states she was able to participate with therapy and was able to go to the dining room to eat all of her meals, but when she wasn't stimulated she fell asleep. On exam she is sleeping comfortably and is in no acute distress. Chest is clear to auscultation. Cardiovascular reveals a regular rate and rhythm. Abdomen is soft and nontender. Extremities are free of edema. Skin is warm and dry and without rashes. Urinalysis was obtained today due to aggressive behaviors. Nitrate was positive , leukocyte esterase +1, RBCs 50-200, white blood cells 50-200, few white blood cell clumps, 4+ bacteria. Culture was initiated. Impression and plan Right MCA stroke secondary to thrombus. Status post thrombectomy 01/16/2018. Patient was started on Lovenox and Coumadin. INR has been therapeutic for 2 days. Lovenox was discontinued. Agitation-patient received Haldol last night and has been somnolent today. UTI-start Keflex and check urine culture with sensitivity Paroxysmal A. fib-continue amiodarone Hypertension-monitor blood pressure DVT Prophylaxis: Coumadin Resuscitation Status: Do Not Resuscitate - Time spent with patient Time with patient PN: 70 minutes - Physician Narrative Physician: Joy Hernandez MD Narrative: Date: 01/21/18 Time: 1337 Hospital Course Summary Disclaimer: The visit summary below is not to be considered part of the above Progress Note. Hospital Course: Plan - 01/21/18 Agree with admission to IRU for strengthening and improvement in functional abilities. Monitor closely as patient is a high fall risk. Labs on admission revealed leukocytosis (WBC 12.1). Will try and obtain UA now given increase in behaviors over night. Afebrile now. Mild anemia noted - monitor periodically throughout admission. No current signs of bleeding. Monitor for signs of bleeding with current anticoagulation. Started on amiodarone 400mg BID in [place] due to a-fib with occasional RVR. Currently rate controlled a-fib. Monitor closely on telemetry. Patient to continue amiodarone 400mg BID until 01/26/18 at which time she was be decreased to 200mg BID until follow up with Dr. Araujo following discharge from IRU. INR currently therapeutic at 2.95. Pharmacy to manage. INR to be monitor daily to ensure anticoagulation is between range 2-3. Seen and evaluated by speech and no diet changes recommended at this time. Monitor closely for signs of aspiration. Monitor daily blood pressure and heart rate closely. Goal blood pressure <180 SBP. Continue atenolol 50mg daily. Hydralazine PRN SBP >160 SBP. Monitor mood closely for signs of depression and behavioral changes. Continue Zoloft. Bowel motivation given history of constipation and no recent BM noted. Will recheck labs in AM to monitor blood counts, electrolytes and renal function. Upon discharge, patient's care to be returned to her PCP, Dr. Caty Gipson. Patient is a DNR.
[2018-01-21] MEDS ORDERED: HYDRALAZINE 20 MG/ML INJECTION IVP PRN (15:06)
--- NOTE | 2018-01-21 16:05 | XRay Report ---
Indication: recent CVA, leukocytosis PROCEDURE: XR chest 1V: Encounter: Initial Comparison: October 30, 2012 Findings: The lungs are clear without focal airspace consolidation. There is no pleural effusion or pneumothorax. The heart size, pulmonary vascularity and mediastinal contours are unchanged. IMPRESSION: No acute cardiopulmonary disease. .
[2018-01-21] MEDS: TAMSULOSIN 0.4 MG CAPSULE PO SCH (22:42)
[2018-01-21] MEDS: ACETAMINOPHEN 325 MG TABLET PO PRN (22:42)
[2018-01-21] MEDS: SENNA + DOCUSATE TABLET PO SCH (22:43)
[2018-01-22] MEDS: SALINE FLUSH 10ml SYRINGE IV PRN ×2 (06:55→15:27)
[2018-01-22] MEDS: POLYETHYL GLYCOL 3350 17gm PACKET PO SCH (08:53)
[2018-01-22] MEDS: SERTRALINE 50 MG TABLET PO SCH (08:54)
[2018-01-22] MEDS: AMIODARONE 200 MG TABLET PO SCH ×2 (08:54→21:45)
[2018-01-22] MEDS: ATENOLOL 50 MG TABLET PO SCH (08:55)
[2018-01-22] MEDS: ACETAMINOPHEN 325 MG TABLET PO PRN (08:57)
[2018-01-22] MEDS: SENNA + DOCUSATE TABLET PO SCH ×2 (08:57→21:46)
--- NOTE | 2018-01-22 14:45 | Pharmacy Consult ---
Pharmacy Consult-Warfarin - Laboratory Information 01/20/18 01/21/18 01/21/18 19:15 09:38 09:38 Hgb 11.4 L Hct 33.1 L INR 2.35 H 2.95 H AST ALT Albumin 01/22/18 01/22/18 01/22/18 13:39 13:39 13:39 Hgb 11.3 L Hct 32.8 L INR 2.58 H AST 27 ALT 23 Albumin 3.8 - Consult Information COUMADIN CONSULT (Recurring): 87 yr old female pt 5'2" 58.6 kg admitted to IRU for PT, OT and ST post acute right hemispheric cardio-embolic CVA causing muscular weakness and strength deficits. She has A-Fib and has recently been started on Warfarin for anticoagulation. Admit INR = 2.35 She also began Cephalexin 500 mg po q12hrs for a UTI. The antibiotic can cause the INR to increase. DATE INR DOSE 01/21 2.95 2.5 MG 01/22 2.58 Will give 2.5 MG Warfarin today Pharmacy will continue to monitor the INR and adjust the warfarin dose accordingly. Thank you. Leatha Simpson, PharmD
[2018-01-22] MEDS ORDERED: WARFARIN 2.5 MG TABLET PO SCH (15:00)
[2018-01-22] MEDS: TAMSULOSIN 0.4 MG CAPSULE PO SCH (21:46)
--- NOTE | 2018-01-23 07:09 | Pharmacy Consult ---
Pharmacy Consult-Warfarin - Laboratory Information 01/20/18 01/21/18 01/21/18 19:15 09:38 09:38 Hgb 11.4 L Hct 33.1 L INR 2.35 H 2.95 H AST ALT Albumin 01/22/18 01/22/18 01/22/18 13:39 13:39 13:39 Hgb 11.3 L Hct 32.8 L INR 2.58 H AST 27 ALT 23 Albumin 3.8 01/23/18 05:15 Hgb Hct INR 3.09 H AST ALT Albumin - Consult Information COUMADIN CONSULT: Day 3 87 yr old female pt 5'2" 58.6 kg admitted to IRU for PT, OT and ST post acute right hemispheric cardio-embolic CVA causing muscular weakness and strength deficits. She has A-Fib and has recently been started on Warfarin for anticoagulation. Admit INR = 2.35 She also began Cephalexin 500 mg po q12hrs for a UTI. The antibiotic can cause the INR to increase. DATE INR DOSE 01/21 2.95 2.5 MG 7/4 2.58 2.5 MG 7/5 3.09 Hold Pharmacy will continue to monitor the INR and adjust the warfarin dose accordingly. Thank you, Miguel Ocampo, Pharmacist
[2018-01-23] MEDS: POLYETHYL GLYCOL 3350 17gm PACKET PO SCH (08:09)
[2018-01-23] MEDS: SERTRALINE 50 MG TABLET PO SCH (08:12)
[2018-01-23] MEDS: ATENOLOL 50 MG TABLET PO SCH (08:12)
[2018-01-23] MEDS: ACETAMINOPHEN 325 MG TABLET PO PRN ×2 (08:12→19:56)
[2018-01-23] MEDS: AMIODARONE 200 MG TABLET PO SCH ×3 (08:12→23:37)
[2018-01-23] MEDS: SENNA + DOCUSATE TABLET PO SCH ×3 (08:12→23:37)
--- NOTE | 2018-01-23 10:35 | IRU Progress Note ---
- Subjective/Serverity of Illness Date: 01/23/18 Consuelo was interviewed and examined in her room with the patient's daughter present. She is cooperative with therapy. She continually asks if she can go home. Remains oblivious to her left side which is the affected side from her stroke. Has substantial left-sided neglect which was tested today with confrontation. Pupils are equal. There is slight left facial droop. According to her daughter, the patient spontaneously moved her left arm up quite a bit today or yesterday. Today she is attempting to move the left arm indicating some proximal movement only. Left lower extremity was tested. She is stronger on extension at the knee and then she is on flexion at the knee. Sit to stand is performed with minimum assistance. She is working on the parallel bars. Upper body dressing requires maximum assistance for lower body dressing requires total assistance. She is followed by speech therapy. She does demonstrate impulsive eating in a rapid rate. She is on a regular diet with chopped meats. She requires supervision for eating. Patient's blood pressures are reviewed and are stable. There is no evidence of new neurologic change. Her INR is therapeutic at 3.09. Exam Vital Signs: Temperature 98.3 F 01/23/18 07:36 Pulse Rate 67 01/23/18 07:36 Respiratory Rate 16 01/23/18 07:36 Blood Pressure 129/54 01/23/18 07:36 Pulse Oximetry 93 01/23/18 07:36 Height/Weight/BMI: Height 1.57 m Weight 59.9 kg Body Mass Index 23.6 - Constitutional Present: no acute distress, well nourished, well developed Comments: Patient appears to be oblivious to her situation. She believes that she can go home at the present time. - Routine HEENT Exam Eye: Present: EOMI ENT: Present: mucous membranes moist, oropharynx clear - Routine Neck Exam Present: supple - Routine Respiratory Exam Present: decreased breath sounds, CTA bilaterally. Absent: wheezes - Routine Cardiovascular Exam Present: RRR, S1, S2. Absent: murmur - Routine Abdominal Exam Present: soft, normoactive bowel sounds, non distended. Absent: tenderness - Routine Extremities Exam Present: no edema, normal capillary refill - Routine Skin Exam Present: dry, warm - Routine Neurological Exam Present: alert, motor deficit (some mild movement of left upper extremity proximal muscles noted. Left lower extremity demonstrates greater strength on extension than on flexion at the knee. No edema noted.). Absent: oriented X3, CN II-XII intact - Routine Psychiatric Exam Absent: good insight, good judgment (Seems oblivious to her situation. ) Results IRU - Labs Labs: Reviewed telemetry strips which demonstrated normal sinus mechanism. IRU A/P (1) Ischemic cerebrovascular accident (CVA) Current visit: Yes Status: Acute Neurologically she seems to be showing some movement in left upper extremity although minimal. Is cooperative with therapy but seems to be oblivious as to her toes situation. Has a significant left sided neglect. (2) Hypertension Qualifiers: Hypertension type: essential hypertension Qualified Code(s): I10 - Essential (primary) hypertension Current visit: Yes Status: Chronic Blood pressures seem well controlled at present. (3) Diastolic heart failure Qualifiers: Heart failure chronicity: chronic Qualified Code(s): I50.32 - Chronic diastolic (congestive) heart failure Current visit: Yes Status: Chronic Lungs are clear (4) Paroxysmal atrial fibrillation Current visit: Yes Status: Chronic Telemetry demonstrates normal sinus mechanism. Remains on therapeutic dose of warfarin. (5) Low back pain Qualifiers: Chronicity: chronic Back pain laterality: midline Sciatica presence: without sciatica Qualified Code(s): M54.5 - Low back pain; G89.29 - Other chronic pain Current visit: Yes Status: Chronic (6) Leukocytosis Qualifiers: Leukocytosis type: unspecified Qualified Code(s): D72.829 - Elevated white blood cell count, unspecified Current visit: Yes Status: Resolved White count is improved to normal at present. DVT Prophylaxis: Coumadin Resuscitation Status: Do Not Resuscitate - Course Hospital Course: Golden Rodriguez MD: 01/21/18 10:23 Difficult night with hallucinations and agitation. Somnolence this morning. Blood pressures are stable. White count elevated. Neurologically no change. 01/23/18 10:42 White count resolved to normal. She is more awake and alert. Dense left-sided neglect. Cooperative with therapy. - Interventions to Obtain Goals PT Treatment Plan: Balance/Proprioception, Functional Activities, Gait Training , Patient/Family Education, Therapeutic Exercise OT Treatment Plan: ADL (Basic Care), Balance Training, IADL, Pt./Family Education, Ther. Exercise for ADL
[2018-01-23] MEDS: SALINE FLUSH 10ml SYRINGE IV PRN ×2 (11:00→19:55)
[2018-01-23] MEDS: TAMSULOSIN 0.4 MG CAPSULE PO SCH ×2 (19:55→23:37)
--- NOTE | 2018-01-24 08:04 | Pharmacy Consult ---
Pharmacy Consult-Warfarin - Laboratory Information 01/20/18 01/21/18 01/21/18 19:15 09:38 09:38 Hgb 11.4 L Hct 33.1 L INR 2.35 H 2.95 H AST ALT Albumin 01/22/18 01/22/18 01/22/18 13:39 13:39 13:39 Hgb 11.3 L Hct 32.8 L INR 2.58 H AST 27 ALT 23 Albumin 3.8 01/23/18 01/24/18 05:15 05:39 Hgb Hct INR 3.09 H 2.72 H AST ALT Albumin - Consult Information Warfarin 2mg ordered for noon today. Will continue to monitor. Thank you.
[2018-01-24] MEDS: AMIODARONE 200 MG TABLET PO SCH ×2 (08:28→20:00)
[2018-01-24] MEDS: POLYETHYL GLYCOL 3350 17gm PACKET PO SCH (08:29)
[2018-01-24] MEDS: SENNA + DOCUSATE TABLET PO SCH ×2 (08:29→20:00)
[2018-01-24] MEDS: ATENOLOL 50 MG TABLET PO SCH (08:29)
[2018-01-24] MEDS: SERTRALINE 50 MG TABLET PO SCH (08:30)
--- NOTE | 2018-01-24 11:09 | IRU Progress Note ---
- Subjective/Serverity of Illness Date: 01/24/18 Consuelo was reassess in her room on inpatient rehabilitation. She is cooperative with therapy but again asks me if she can be dismissed to her home. Continues to be somewhat oblivious to her left-sided weakness. From a medical standpoint, her blood pressures remained stable. She remains on warfarin with therapeutic INR. She denies any sensation of palpitations or shortness of breath. I reviewed her telemetry strips which now look as though she is back in atrial fibrillation. However this appears to be asymptomatic. Her INR is doing well and managed by pharmacy. She is co-treated by PT and OT. She is making progress. She still requires maximum to total assist for dressing. She is improving with regard to sitting balance. Speech therapy working with patient and monitoring her during mealtime. She continues to be impulsive and tends to eat fast. She requires verbal cues to slow down. Previously noted urinary tract infection growing Escherichia coli and treated with cephalexin. Remains afebrile. Exam Vital Signs: Temperature 98.3 F 01/24/18 08:00 Pulse Rate 86 01/24/18 08:00 Respiratory Rate 18 01/24/18 08:00 Blood Pressure 100/61 01/24/18 10:08 Pulse Oximetry 93 01/24/18 08:00 Height/Weight/BMI: Height 1.57 m Weight 59.9 kg Body Mass Index 23.6 - Constitutional Present: no acute distress, well nourished, well developed, cooperative Comments: Patient is oriented to day to place, year and who the president is. She is awake and alert. Continues to be hard of hearing of course. She is cooperative but continues to believe that she can go home. - Routine HEENT Exam Eye: Present: EOMI ENT: Present: mucous membranes moist, oropharynx clear - Routine Neck Exam Present: supple - Routine Respiratory Exam Present: CTA bilaterally. Absent: wheezes - Routine Cardiovascular Exam Present: S1, S2, irregularly irregular. Absent: murmur - Routine Abdominal Exam Present: soft, normoactive bowel sounds, non distended. Absent: tenderness - Routine Extremities Exam Present: no edema, normal capillary refill - Routine Skin Exam Present: dry, warm - Routine Neurological Exam Present: alert, oriented X3, motor deficit (has more purposeful and is stronger movement of the left arm. She is lying supine and was able to raise it up independently straight to the ceiling. This is a significant improvement. Left lower extremity continues to be weak.). Absent: CN II-XII intact - Routine Psychiatric Exam Present: normal affect, cooperative. Absent: good insight, good judgment Results IRU - Labs Labs: Have reviewed laboratory notes as well as telemetry strips. IRU A/P (1) Ischemic cerebrovascular accident (CVA) Current visit: Yes Status: Acute Improved movement of left upper extremity noted. Working on sitting balance. (2) Hypertension Qualifiers: Hypertension type: essential hypertension Qualified Code(s): I10 - Essential (primary) hypertension Current visit: Yes Status: Chronic Blood pressures slightly low at present. Asymptomatic however. (3) Diastolic heart failure Qualifiers: Heart failure chronicity: chronic Qualified Code(s): I50.32 - Chronic diastolic (congestive) heart failure Current visit: Yes Status: Chronic Lungs remain clear and without evidence of overt failure. (4) Paroxysmal atrial fibrillation Current visit: Yes Status: Chronic Telemetry strips reviewed and indicate recurrence of atrial fibrillation with controlled response. (5) Low back pain Qualifiers: Chronicity: chronic Back pain laterality: midline Sciatica presence: without sciatica Qualified Code(s): M54.5 - Low back pain; G89.29 - Other chronic pain Current visit: Yes Status: Chronic (6) Leukocytosis Qualifiers: Leukocytosis type: unspecified Qualified Code(s): D72.829 - Elevated white blood cell count, unspecified Current visit: Yes Status: Resolved DVT Prophylaxis: Coumadin Resuscitation Status: Do Not Resuscitate - Course Hospital Course: Golden Rodriguez MD: 01/21/18 10:23 Difficult night with hallucinations and agitation. Somnolence this morning. Blood pressures are stable. White count elevated. Neurologically no change. 01/23/18 10:42 White count resolved to normal. She is more awake and alert. Dense left-sided neglect. Cooperative with therapy. 01/24/18 11:11 Neurologically improved with better movement of left upper extremity. Cooperative with therapy. Continues to believe that she can go home anytime. UTI treated with cephalexin and tolerated well. Blood pressures a bit low. - Interventions to Obtain Goals PT Treatment Plan: Balance/Proprioception, Functional Activities, Gait Training , Patient/Family Education, Therapeutic Exercise OT Treatment Plan: ADL (Basic Care), Balance Training, IADL, Pt./Family Education, Ther. Exercise for ADL Goals Progress/Modifications: Reviewed patient's overall status. She appears to be stable and able to tolerate 3 hours of therapy daily. She has increased strength in the left upper extremity. She is working on sitting balance. While she is cooperative, she continues to believe that she can go home any time and appears to be unaware of her total overall situation. Blood pressures are running a bit low and will be monitored carefully.
[2018-01-24] MEDS ORDERED: WARFARIN 2 MG TABLET PO SCH (12:00)
--- NOTE | 2018-01-24 13:39 | IRU Team Meeting ---
IRU Team Meeting - Nursing Bladder Assistive Devices Utilized:: Absorbent Pad Bladder Management Level of Assist: Stand By Assist/Supervision Bowel Assistive Devices Utilized:: Medication, Absorbent Pad Bowel Management Level of Assist: Stand By Assist/Supervision Vital Signs: Vital Signs - 24 hr 01/23/18 15:36 01/23/18 16:00 01/23/18 19:50 Temperature 98.0 F 98.1 F Pulse Rate 68 65 63 Respiratory Rate 14 28 H Blood Pressure 126/61 142/67 H Pulse Oximetry 93 95 01/24/18 00:00 01/24/18 02:41 01/24/18 08:00 Temperature 98.3 F Pulse Rate 67 69 86 Respiratory Rate 18 Blood Pressure 94/59 Pulse Oximetry 93 01/24/18 10:08 Temperature Pulse Rate Respiratory Rate Blood Pressure 100/61 Pulse Oximetry Current Medications: Acetaminophen (Tylenol) 650 mg PO Q4HR PRN PRN Reason: Pain Last Admin: 01/23/18 19:56 Dose: 650 mg Amiodarone HCl (Pacerone) 400 mg PO BID [facility] Stop: 01/26/18 23:59 Last Admin: 01/24/18 08:28 Dose: 400 mg Amiodarone HCl (Pacerone) 200 mg PO BID [facility] Atenolol (Tenormin) 50 mg PO DAILY [facility] Last Admin: 01/24/18 08:29 Dose: 50 mg Cephalexin HCl (Keflex 500 Mg) 500 mg PO Q12HR [facility] Last Admin: 01/24/18 08:28 Dose: 500 mg Hydralazine HCl (Apresoline) 5 mg IVP Q6H PRN Magnesium Hydroxide (Mom) 30 ml PO DAILY PRN PRN Reason: Constipation Polyethylene Glycol (Miralax) 17 gm PO DAILY [facility] Last Admin: 01/24/18 08:29 Dose: Not Given Senna/Docusate Sodium (Senna Plus Tablet) 1 tab PO BID [facility] Last Admin: 01/24/18 08:29 Dose: 1 tab Sertraline HCl (Zoloft) 50 mg PO DAILY [facility] Last Admin: 01/24/18 08:30 Dose: 50 mg Sodium Chloride (Iv Flush) 10 ml IV PRN PRN PRN Reason: Flushing Last Admin: 01/23/18 19:55 Dose: 10 ml Tamsulosin HCl (Flomax) 0.4 mg PO HS [facility] Last Admin: 01/23/18 23:37 Dose: Not Given Warfarin Sodium (Coumadin Protocol) 0 MC NOTE [facility] Current Medical Issues: Recent CVA, atrial fibrillation with need for anticoagulation, hypertension, urinary tract infection Comments: I certify that I personally led the interdisciplinary team meeting and agree with comments, barriers and goals indicated. Team meeting was held in the patient's room with the patient and the following family members present: patient's daughter and patient's [id number] Ms. Peguero has had recent diagnosis of urinary tract infection with Escherichia coli. Patient is on cephalexin. She remains afebrile. Her blood pressures are running slightly on the low side. Her INR is therapeutic. She was in sinus mechanism and now is in atrial fibrillation with controlled ventricular response. - Speech Therapy Speech therapy is working with the patient. Patient is impulsive and requires slowing down with eating. She is working on left-sided neglect and cognition. - Physical Therapy Bed, Chair, Wheelchair Transfer Assist: Total Assistance, 2 or More Person Assist Ambulation Ability: Total Assistance Ambulation Distance: 1 Wheelchair Propulsion Ability: Total Assistance Wheelchair Propulsion Distance: 36 Stair Climbing Ability: Patient Unsafe/Unable Car Transfer Ability: Patient Unsafe/Unable Comments: Patient is being co-treated with physical therapy and occupational therapy to maintain patient and staff safety. In addition she is being co-treated in order to maximize the benefit to the patient because of her easy fatigability. She is improving with physical therapy and working on core muscle strengthening and dynamic balance. There is some movement of the left arm which is encouraging. She requires maximum verbal cues to follow commands especially when addressed from the left side. - Occupational Therapy Eating Ability: Stand By Assist/Supervision Grooming Ability: Minimal Assistance Bathing Ability: Total Assistance Upper Body Dressing Ability: Total Assistance Lower Body Dressing Ability: Total Assistance Tub Transfer Assist: Patient Unsafe/Unable Toileting Assist: Total Assistance Toilet Transfer Assist: Total Assistance, 2 or More Person Assist Comments: Patient is demonstrating non-purposeful movements of the left upper extremity. However she is showing progress toward goals and requires total assistance for dressing and toileting. - Goals Physical Therapy Goals: 01/24/18 Goals: 1.) Transfers with moderate assistance. 2.) Correct midline orientation in standing with 1 verbal cue and sustain for one minute. Occupational Therapy Goals: OT goals 01/24/18: 1.) Upper body dressing with minimal assistance. 2.) Lower body dressing with moderate assistance. 3.) Transfer to toilet with moderate assistance. 4.) Increase left upper body strength/ROM Speech Therapy Goals: Cogn-ling Goals: Pt will identify that a problem exists in a picture & verbally presented situations with 80% accuracy requiring mild cues. Pt will provide appropriate solutions for given problems with 80% accuracy requiring mild cues. Dysphagia: Pt will consume a regular consistency with thin liquids without outward signs of aspiration at bedside in 85% of trials. Pt will implement compensatory feeding strategies (alternate liquids/solid & slow pacing) in 80% of feeding trials /meals with minimal cues to aid recall. Pt will demonstrate self awareness when answering questions regarding situation information and etiology given minimal cues. Pt will verbalize general knowledge regarding stroke and its effect with minimal cues. Pt will demonstrate sustained attention during a 30 min treatment session requiring minimal cues. Pt will demonstrate awareness of objects in left visual filed dueing therapy session requiring minimal cues. Pt will visually scan left to right during reading and writing tasks with minimal assistance. - Barriers to Discharge Barriers to Attaining Goals: Balance (to address balance, increasing core muscle strength and balance and proprioceptive exercises are offered.), Medical Limitation (left-sided neglect is significant. Forced use and activities on the left side are promoted. In addition patient has lack of coordination and in this regard coronation activities are offered.) - Care Plan Anticipated Length of Stay (days): 14 Anticipated Length of Stay: Reassess in one week Anticipated DC Destination: Home, Self Care, Home Health Service I have led this team conference and agree with the plan. Interventions/Goals: Patient has made slow progress. She continually asks when she can go home. Cognition is a significant issue. However patient is making progress with both speech therapy and occupational therapy as well as physical therapy and continues to qualify for inpatient rehabilitation.
[2018-01-24] MEDS: ACETAMINOPHEN 325 MG TABLET PO PRN ×2 (15:38→20:01)
--- NOTE | 2018-01-24 17:02 | Progress Note ---
- Date 01/24/18 Subjective: Consuelo was sleeping comfortably at the time of my visit but multiple family members were present and able to update me on her progress. They state that when she falls asleep she is very difficult to wake up. She's been very tired but also working hard with therapy. She just received Tylenol for back pain. She has not c/o urinary sx despite known UTI. They report that she tends to prefer looking towards the right so they were instructed to sit on her left side to try to encourage her to look towards the left. Objective Vital signs: Temperature 98.3 F 01/24/18 16:00 Pulse Rate 63 01/24/18 16:00 Respiratory Rate 14 01/24/18 16:00 Blood Pressure 97/50 01/24/18 16:00 Pulse Oximetry 92 01/24/18 16:00 Height/Weight/BMI: Height 1.57 m Weight 59.9 kg Body Mass Index 23.6 - Constitutional Present: other (sleeping comfortably) - Routine HEENT Exam Head: Present: normocephalic ENT: Present: mucous membranes dry - Routine Respiratory Exam Present: CTA bilaterally - Routine Cardiovascular Exam Present: RRR, S1, S2 - Routine Abdominal Exam Present: soft, normoactive bowel sounds, non distended, non tender - Routine Extremities Exam Present: no edema - Routine Skin Exam Present: dry, pallor, warm - Routine Psychiatric Exam Present: unable to assess Results - Labs CBC & Chem 7: 01/22/18 13:39 01/24/18 05:39 Microbiology Results: Microbiology 01/21/18 16:35 Urine, Voided (Cc/notcc) Urine Culture - Final Escherichia coli Assessment and Plan Assessment and Plan: Assessment: 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 Leukocytosis - present on admission - resolved. Anemia - present on admission. E. coli UTI Hypokalemia Anticoagulation with warfarin, therapeutic INR (goal between 2-3). Paroxysmal A-fib with history of RVR. Hypertension. Probable PFO. History of urinary retention. Diastolic cardiac dysfunction, grade I - EF 70-75%. Depression. Constipation. High fall risk. History of chronic compression fractures with chronic back pain. Hyperlipidemia. Plan - 01/24/18 PAF - pt was in A-fib from about [id number] today. Currently back in NSR. Cont Coumadin, amiodarone, atenolol -- however BP has been running low today; will decrease dosing of atenolol to 25 mg daily; hold if SBP <110. Amiodarone to be decreased to 200 mg BID on 01/27. Cont cephalexin for pansensitive E. coli UTI to complete 5 day course. K 3.5 - KDur 20 mEq x1. INR therapeutic. Continue therapy per Dr. Rodriguez. DVT Prophylaxis: Coumadin Resuscitation Status: Do Not Resuscitate - Physician Narrative Narrative: Date: 01/24/18 Time: 1655 Hospital Course Summary Disclaimer: The visit summary below is not to be considered part of the above Progress Note. Hospital Course: Plan - 01/21/18 Agree with admission to IRU for strengthening and improvement in functional abilities. Monitor closely as patient is a high fall risk. Labs on admission revealed leukocytosis (WBC 12.1). Will try and obtain UA now given increase in behaviors over night. Afebrile now. Mild anemia noted - monitor periodically throughout admission. No current signs of bleeding. Monitor for signs of bleeding with current anticoagulation. Started on amiodarone 400mg BID in [place] due to a-fib with occasional RVR. Currently rate controlled a-fib. Monitor closely on telemetry. Patient to continue amiodarone 400mg BID until 01/26/18 at which time she was be decreased to 200mg BID until follow up with Dr. Araujo following discharge from IRU. INR currently therapeutic at 2.95. Pharmacy to manage. INR to be monitor daily to ensure anticoagulation is between range 2-3. Seen and evaluated by speech and no diet changes recommended at this time. Monitor closely for signs of aspiration. Monitor daily blood pressure and heart rate closely. Goal blood pressure <180 SBP. Continue atenolol 50mg daily. Hydralazine PRN SBP >160 SBP. Monitor mood closely for signs of depression and behavioral changes. Continue Zoloft. Bowel motivation given history of constipation and no recent BM noted. Will recheck labs in AM to monitor blood counts, electrolytes and renal function. Upon discharge, patient's care to be returned to her PCP, Dr. Caty Gipson. Patient is a DNR. 01/24/18 PAF - pt was in A-fib from about [id number] today. Currently back in NSR. Cont Coumadin, amiodarone, atenolol -- however BP has been running low today; will decrease dosing of atenolol to 25 mg daily; hold if SBP <110. Amiodarone to be decreased to 200 mg BID on 01/27. Cont cephalexin for pansensitive E. coli UTI to complete 5 day course. K 3.5 - KDur 20 mEq x1. INR therapeutic.
[2018-01-24] MEDS: TAMSULOSIN 0.4 MG CAPSULE PO SCH (20:00)
[2018-01-24] MEDS: SALINE FLUSH 10ml SYRINGE IV PRN (20:02)
--- NOTE | 2018-01-25 07:39 | Pharmacy Consult ---
Pharmacy Consult-Warfarin - Laboratory Information 01/20/18 01/21/18 01/21/18 19:15 09:38 09:38 Hgb 11.4 L Hct 33.1 L INR 2.35 H 2.95 H AST ALT Albumin 01/22/18 01/22/18 01/22/18 13:39 13:39 13:39 Hgb 11.3 L Hct 32.8 L INR 2.58 H AST 27 ALT 23 Albumin 3.8 01/23/18 01/24/18 01/25/18 05:15 05:39 04:42 Hgb Hct INR 3.09 H 2.72 H 2.51 H AST ALT Albumin - Consult Information Warfarin 2mg po today at noon ordered. Thanks
[2018-01-25] MEDS: ATENOLOL 25 MG TABLET PO SCH (08:22)
[2018-01-25] MEDS: AMIODARONE 200 MG TABLET PO SCH ×2 (08:34→20:36)
[2018-01-25] MEDS: ACETAMINOPHEN 325 MG TABLET PO PRN (08:34)
[2018-01-25] MEDS: SERTRALINE 50 MG TABLET PO SCH (08:34)
[2018-01-25] MEDS: POLYETHYL GLYCOL 3350 17gm PACKET PO SCH (08:35)
[2018-01-25] MEDS: SALINE FLUSH 10ml SYRINGE IV PRN ×2 (08:35→20:39)
[2018-01-25] MEDS: SENNA + DOCUSATE TABLET PO SCH ×2 (08:35→20:36)
[2018-01-25] MEDS ORDERED: WARFARIN 2 MG TABLET PO SCH (12:00)
[2018-01-25] MEDS: TAMSULOSIN 0.4 MG CAPSULE PO SCH (20:38)
[2018-01-26] MEDS: ACETAMINOPHEN 325 MG TABLET PO PRN ×3 (02:31→17:07)
--- NOTE | 2018-01-26 07:21 | Pharmacy Consult ---
Pharmacy Consult-Warfarin - Laboratory Information 01/20/18 01/21/18 01/21/18 19:15 09:38 09:38 Hgb 11.4 L Hct 33.1 L INR 2.35 H 2.95 H AST ALT Albumin 01/22/18 01/22/18 01/22/18 13:39 13:39 13:39 Hgb 11.3 L Hct 32.8 L INR 2.58 H AST 27 ALT 23 Albumin 3.8 01/23/18 01/24/18 01/25/18 05:15 05:39 04:42 Hgb Hct INR 3.09 H 2.72 H 2.51 H AST ALT Albumin 01/26/18 04:41 Hgb Hct INR 2.42 H AST ALT Albumin - Consult Information We will give warfarin 2mg po today at noon. INR remains very stable on this dose.. Thanks
[2018-01-26] MEDS: POLYETHYL GLYCOL 3350 17gm PACKET PO SCH (08:10)
[2018-01-26] MEDS: SALINE FLUSH 10ml SYRINGE IV PRN ×3 (08:22→20:21)
[2018-01-26] MEDS: SERTRALINE 50 MG TABLET PO SCH (08:23)
[2018-01-26] MEDS: SENNA + DOCUSATE TABLET PO SCH ×2 (08:23→20:21)
[2018-01-26] MEDS: AMIODARONE 200 MG TABLET PO SCH ×2 (08:23→20:21)
[2018-01-26] MEDS: ATENOLOL 25 MG TABLET PO SCH (08:23)
[2018-01-26] MEDS ORDERED: WARFARIN 2 MG TABLET PO SCH (12:00)
[2018-01-26] MEDS: TAMSULOSIN 0.4 MG CAPSULE PO SCH (20:21)
[2018-01-27] MEDS: ACETAMINOPHEN 325 MG TABLET PO PRN (04:32)
[2018-01-27] MEDS: POLYETHYL GLYCOL 3350 17gm PACKET PO SCH (07:59)
[2018-01-27] MEDS: SALINE FLUSH 10ml SYRINGE IV PRN ×2 (08:18→20:09)
[2018-01-27] MEDS: SERTRALINE 50 MG TABLET PO SCH (08:18)
--- NOTE | 2018-01-27 08:18 | Pharmacy Consult ---
Pharmacy Consult-Warfarin - Laboratory Information 01/23/18 01/24/18 01/25/18 05:15 05:39 04:42 Hgb Hct INR 3.09 H 2.72 H 2.51 H AST ALT Albumin 01/26/18 01/27/18 04:41 04:29 Hgb Hct INR 2.42 H 2.34 H AST ALT Albumin - Consult Information COUMADIN CONSULT: Day 7 87 yr old female pt 5'2" 58.6 kg admitted to IRU for PT, OT and ST post acute right hemispheric cardio-embolic CVA causing muscular weakness and strength deficits. She has A-Fib and has recently been started on Warfarin for anticoagulation. Admit INR = 2.35 DATE INR DOSE 01/21 2.95 2.5 mg 01/22 2.58 2.5 mg 01/23 3.09 Held 01/24 2.72 2 mg 01/25 2.51 2 mg 01/26 2.42 2 mg 01/27 2.34 2.5 mg I ordered Warfarin 2.5 mg p.o. today @ 1200. The Pharmacy will continue to monitor the INR and adjust the warfarin dose accordingly. Thank you, Miguel Ocampo, Pharmacist
[2018-01-27] MEDS: ATENOLOL 25 MG TABLET PO SCH (08:19)
[2018-01-27] MEDS: AMIODARONE 200 MG TABLET PO SCH ×2 (08:19→20:08)
[2018-01-27] MEDS: SENNA + DOCUSATE TABLET PO SCH ×2 (08:19→20:08)
--- NOTE | 2018-01-27 10:17 | IRU Progress Note ---
- Subjective/Serverity of Illness Date: 01/27/18 Consuelo was reassessed in her room on inpatient rehabilitation. While she is cooperative with therapy, she is not making a lot of progress. Please see discussion below in this regard. When I walked in her room, as before, she mainly repeatedly asks if I will dismiss her to her home. Once again I explained that she is not strong enough to do this but she again asks me to dismiss her to her home. She has been excessively sleepy at times. No evidence of overt bleeding. Her INR is therapeutic at 2.34. Review of telemetry indicates that she converted back to normal sinus mechanism some time since January 25. Remains in a regular rhythm at present. From an occupational therapy standpoint she continues to demonstrate a lot of left-sided neglect, not much carryover from one day to the next and disinterest. She is cooperative with therapy but not making a lot of progress. With physical therapy she continues to display disinterest but cooperates with therapy. Transfers are anywhere from maximal assist to total assist. On exam today, she was able to move the left hand better and able to provide some degree of hand ticket taker. I have not noted this previously. Exam Vital Signs: Temperature 98.1 F 01/27/18 07:25 Pulse Rate 62 01/27/18 08:00 Respiratory Rate 24 01/27/18 07:25 Blood Pressure 113/65 01/27/18 07:25 Pulse Oximetry 93 01/27/18 07:25 Height/Weight/BMI: Height 1.57 m Weight 59.9 kg Body Mass Index 23.6 - Constitutional Present: no acute distress, well nourished, well developed Comments: aloof, displays lack of understanding re: her situation - Routine HEENT Exam Eye: Present: EOMI ENT: Present: mucous membranes moist - Routine Neck Exam Present: supple - Routine Respiratory Exam Present: decreased breath sounds, CTA bilaterally. Absent: wheezes - Routine Cardiovascular Exam Present: RRR, S1, S2. Absent: murmur - Routine Abdominal Exam Present: soft, normoactive bowel sounds, non distended. Absent: tenderness - Routine Extremities Exam Present: no edema, normal capillary refill - Routine Skin Exam Present: dry, warm - Routine Neurological Exam Present: alert, motor deficit (left arm demonstrates minimal purposeful movement. Some degree of ticket taker strength today for the first time.), hemineglect ( left-sided neglect. Does turn her head to the left however.), facial asymmetry, normal speech. Absent: CN II-XII intact - Routine Psychiatric Exam Present: depressed. Absent: good insight, good judgment Results IRU - Labs Labs: Reviewed chart data. IRU A/P (1) Ischemic cerebrovascular accident (CVA) Current visit: Yes Status: Acute Neurologically the patient is stable. She is getting some increased movement in the left hand in terms of ticket taker strength which was not present previously. However, she remains disinterested and there is borderline if any carryover from one day the next. (2) Hypertension Qualifiers: Hypertension type: essential hypertension Qualified Code(s): I10 - Essential (primary) hypertension Current visit: Yes Status: Chronic Her blood pressures remained stable and not excessive and not low. (3) Diastolic heart failure Qualifiers: Heart failure chronicity: chronic Qualified Code(s): I50.32 - Chronic diastolic (congestive) heart failure Current visit: Yes Status: Chronic (4) Paroxysmal atrial fibrillation Current visit: Yes Status: Chronic She has reverted back to normal sinus mechanism on telemetry and clinically. Remains on warfarin with therapeutic INR and no evidence of bleeding. (5) Low back pain Qualifiers: Chronicity: chronic Back pain laterality: midline Sciatica presence: without sciatica Qualified Code(s): M54.5 - Low back pain; G89.29 - Other chronic pain Current visit: Yes Status: Chronic (6) Leukocytosis Qualifiers: Leukocytosis type: unspecified Qualified Code(s): D72.829 - Elevated white blood cell count, unspecified Current visit: Yes Status: Resolved DVT Prophylaxis: Coumadin Resuscitation Status: Do Not Resuscitate - Course Hospital Course: Golden Rodriguez MD: 01/21/18 10:23 Difficult night with hallucinations and agitation. Somnolence this morning. Blood pressures are stable. White count elevated. Neurologically no change. 01/23/18 10:42 White count resolved to normal. She is more awake and alert. Dense left-sided neglect. Cooperative with therapy. 01/24/18 11:11 Neurologically improved with better movement of left upper extremity. Cooperative with therapy. Continues to believe that she can go home anytime. UTI treated with cephalexin and tolerated well. Blood pressures a bit low. 01/27/18 10:18 Able to provide some ticket taker strength with left hand which is new. Blood pressures improved and stable. Reverted back to normal sinus mechanism. Patient demonstrates disinterest and lack of comprehension of her situation. - Interventions to Obtain Goals PT Treatment Plan: Balance/Proprioception, Functional Activities, Gait Training , Patient/Family Education, Therapeutic Exercise OT Treatment Plan: ADL (Basic Care), Balance Training, IADL, Pt./Family Education, Ther. Exercise for ADL Goals Progress/Modifications: Progress remains slow and borderline. Patient demonstrates disinterest and lack of educational carryover. We will discuss with therapy as well. From a medical standpoint she remains on warfarin with therapeutic INR. Her telemetry demonstrates reversion back to normal sinus mechanism. Clinically she denies any chest pain or shortness of breath. Able to eat but typically eats only about 2 meals per day.
[2018-01-27] MEDS ORDERED: WARFARIN 2.5 MG TABLET PO SCH (12:00)
--- NOTE | 2018-01-27 15:15 | Progress Note ---
- Date 01/27/18 Subjective: Consuelo was resting, but awakened easily. Standing on her left, she exhibited left sided neglect. She denied any chest pain, SOA, abdominal pain or nausea. She has a bandaid on her chin from a scratch. She states that her son is coming at 1630 and told me that she will be going home with him. She asked me to make sure that was ok with Dr. Rodriguez. Objective Vital signs: Temperature 98.1 F 01/27/18 07:25 Pulse Rate 62 01/27/18 08:00 Respiratory Rate 24 01/27/18 07:25 Blood Pressure 113/65 01/27/18 07:25 Pulse Oximetry 93 01/27/18 07:25 Height/Weight/BMI: Height 1.57 m Weight 59.9 kg Body Mass Index 23.6 - Constitutional Present: no acute distress, well nourished, well developed - Routine HEENT Exam Head: Present: normocephalic Eye: Absent: conjunctival icterus, scleral injection ENT: Present: mucous membranes moist - Routine Respiratory Exam Present: CTA bilaterally - Routine Cardiovascular Exam Present: RRR, S1, S2 - Routine Abdominal Exam Present: soft, normoactive bowel sounds, non distended, non tender - Routine Extremities Exam Present: no edema - Routine Skin Exam Present: intact, dry, warm Comments: bandaid applied to chin and chest wall - Routine Neurological Exam Present: alert, normal speech. 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 Leukocytosis - present on admission - resolved. Anemia - present on admission. E. coli UTI Hypokalemia Anticoagulation with warfarin, therapeutic INR (goal between 2-3). Paroxysmal A-fib with history of RVR. Hypertension. Probable PFO. History of urinary retention. Diastolic cardiac dysfunction, grade I - EF 70-75%. Depression. Constipation. High fall risk. History of chronic compression fractures with chronic back pain. Hyperlipidemia. Plan - 01/27/18 VSS. INR therapeutic. Recheck BMP in am - K was slightly low at 3.5 on 01/24. Keflex course completed for E. coli UTI. Tolerating lower dose of atenolol without rise in bp. Dr. Rodriguez' notes reviewed. D/W nursing. DVT Prophylaxis: Coumadin Resuscitation Status: Do Not Resuscitate - Physician Narrative Narrative: Date: 01/27/18 Time: 1509 Hospital Course Summary Disclaimer: The visit summary below is not to be considered part of the above Progress Note. Hospital Course: Plan - 01/21/18 Agree with admission to IRU for strengthening and improvement in functional abilities. Monitor closely as patient is a high fall risk. Labs on admission revealed leukocytosis (WBC 12.1). Will try and obtain UA now given increase in behaviors over night. Afebrile now. Mild anemia noted - monitor periodically throughout admission. No current signs of bleeding. Monitor for signs of bleeding with current anticoagulation. Started on amiodarone 400mg BID in [place] due to a-fib with occasional RVR. Currently rate controlled a-fib. Monitor closely on telemetry. Patient to continue amiodarone 400mg BID until 01/26/18 at which time she was be decreased to 200mg BID until follow up with Dr. Araujo following discharge from IRU. INR currently therapeutic at 2.95. Pharmacy to manage. INR to be monitor daily to ensure anticoagulation is between range 2-3. Seen and evaluated by speech and no diet changes recommended at this time. Monitor closely for signs of aspiration. Monitor daily blood pressure and heart rate closely. Goal blood pressure <180 SBP. Continue atenolol 50mg daily. Hydralazine PRN SBP >160 SBP. Monitor mood closely for signs of depression and behavioral changes. Continue Zoloft. Bowel motivation given history of constipation and no recent BM noted. Will recheck labs in AM to monitor blood counts, electrolytes and renal function. Upon discharge, patient's care to be returned to her PCP, Dr. Caty Gipson. Patient is a DNR. 01/24/18 PAF - pt was in A-fib from about 9542-1542 today. Currently back in NSR. Cont Coumadin, amiodarone, atenolol -- however BP has been running low today; will decrease dosing of atenolol to 25 mg daily; hold if SBP <110. Amiodarone to be decreased to 200 mg BID on 01/27. Cont cephalexin for pansensitive E. coli UTI to complete 5 day course. K 3.5 - KDur 20 mEq x1. INR therapeutic. 01/27/18 VSS. INR therapeutic. Recheck BMP in am - K was slightly low at 3.5 on 01/24. Keflex course completed for E. coli UTI. Tolerating lower dose of atenolol without rise in bp.
[2018-01-27] MEDS: TAMSULOSIN 0.4 MG CAPSULE PO SCH (20:08)
[2018-01-28] MEDS: ACETAMINOPHEN 325 MG TABLET PO PRN ×4 (03:30→20:15)
--- NOTE | 2018-01-28 07:23 | Pharmacy Consult ---
Pharmacy Consult-Warfarin - Laboratory Information 01/26/18 01/27/18 01/28/18 04:41 04:29 04:44 Hgb Hct INR 2.42 H 2.34 H 2.67 H AST ALT Albumin - Consult Information COUMADIN CONSULT: Day 8 87 yr old female pt 5'2" 58.6 kg admitted to IRU for PT, OT and ST post acute right hemispheric cardio-embolic CVA causing muscular weakness and strength deficits. She has A-Fib and has recently been started on Warfarin for anticoagulation. Admit INR = 2.35 DATE INR DOSE 01/21 2.95 2.5 mg 01/22 2.58 2.5 mg 01/23 3.09 Held 01/24 2.72 2 mg 01/25 2.51 2 mg 01/26 2.42 2 mg 01/27 2.34 2.5 mg 01/28 2.67 2 mg I ordered Warfarin 2 mg p.o. today @ 1200. The Pharmacy will continue to monitor the INR and adjust the warfarin dose accordingly. Thank you, Miguel Ocampo, Pharmacist
[2018-01-28] MEDS: ATENOLOL 25 MG TABLET PO SCH (08:39)
[2018-01-28] MEDS: AMIODARONE 200 MG TABLET PO SCH ×2 (08:40→20:15)
[2018-01-28] MEDS: SERTRALINE 50 MG TABLET PO SCH (08:42)
[2018-01-28] MEDS: POLYETHYL GLYCOL 3350 17gm PACKET PO SCH (08:46)
[2018-01-28] MEDS: SENNA + DOCUSATE TABLET PO SCH ×2 (08:48→20:15)
--- NOTE | 2018-01-28 11:10 | IRU Progress Note ---
- Subjective/Serverity of Illness Date: 01/28/18 Consuelo was reassessed in the IRU gymnasium area with therapies present. Her sitting balance is rather dramatically improved. She continues to want to go home and does not have a good sense of her situation. However she is more aware of her left side according to therapy. She is oriented to place and date and time. She knows she is at [facility], and knows the month is January in the years 2018. She seems cooperative but still wants to go home. Remains on telemetry. Cardiac rhythm is reviewed on telemetry and is consistent with atrial flutter. She is asymptomatic. Rate is controlled. Was started on amiodarone and this has been reduced per recommendation of Dr. Araujo. Remains on warfarin and her INR is therapeutic. No evidence of bleeding.. Exam Vital Signs: Temperature 98.0 F 01/28/18 08:00 Pulse Rate 67 01/28/18 08:00 Respiratory Rate 14 01/28/18 08:00 Blood Pressure 109/53 01/28/18 08:00 Pulse Oximetry 92 01/28/18 08:00 Height/Weight/BMI: Height 1.57 m Weight 59.9 kg Body Mass Index 23.6 - Constitutional Present: no acute distress, well nourished, well developed, cooperative - Routine HEENT Exam Eye: Present: EOMI ENT: Present: mucous membranes moist - Routine Respiratory Exam Present: CTA bilaterally. Absent: wheezes - Routine Cardiovascular Exam Present: S1, S2, irregularly irregular. Absent: murmur - Routine Abdominal Exam Present: soft, normoactive bowel sounds, non distended. Absent: tenderness - Routine Extremities Exam Present: no edema, normal capillary refill - Routine Skin Exam Present: dry, warm - Routine Neurological Exam Present: alert, oriented X3, motor deficit (left-sided weakness as before. Although she is more aware of her left side at this time.), hemineglect. Absent : CN II-XII intact - Routine Psychiatric Exam Present: normal affect, cooperative. Absent: good insight, good judgment Results IRU - Labs Labs: I reviewed other providers notes as well as laboratory findings and other chart data. IRU A/P (1) Ischemic cerebrovascular accident (CVA) Current visit: Yes Status: Acute Neurologically she seems stable. Continues to have left-sided neglect although improved. Her sitting balance is improved per therapy. Carryover and educational efforts are questionable however. (2) Hypertension Qualifiers: Hypertension type: essential hypertension Qualified Code(s): I10 - Essential (primary) hypertension Current visit: Yes Status: Chronic Blood pressure is adequately controlled. (3) Diastolic heart failure Qualifiers: Heart failure chronicity: chronic Qualified Code(s): I50.32 - Chronic diastolic (congestive) heart failure Current visit: Yes Status: Chronic (4) Paroxysmal atrial fibrillation Current visit: Yes Status: Chronic Telemetry strips reviewed and indicate atrial flutter. Controlled ventricular response. INR is therapeutic. (5) Low back pain Qualifiers: Chronicity: chronic Back pain laterality: midline Sciatica presence: without sciatica Qualified Code(s): M54.5 - Low back pain; G89.29 - Other chronic pain Current visit: Yes Status: Chronic She does complain of back pain as before. (6) Leukocytosis Qualifiers: Leukocytosis type: unspecified Qualified Code(s): D72.829 - Elevated white blood cell count, unspecified Current visit: Yes Status: Resolved DVT Prophylaxis: Coumadin Resuscitation Status: Do Not Resuscitate - Course Hospital Course: Golden Rodriguez MD: 01/21/18 10:23 Difficult night with hallucinations and agitation. Somnolence this morning. Blood pressures are stable. White count elevated. Neurologically no change. 01/23/18 10:42 White count resolved to normal. She is more awake and alert. Dense left-sided neglect. Cooperative with therapy. 01/24/18 11:11 Neurologically improved with better movement of left upper extremity. Cooperative with therapy. Continues to believe that she can go home anytime. UTI treated with cephalexin and tolerated well. Blood pressures a bit low. 01/27/18 10:18 Able to provide some director music strength with left hand which is new. Blood pressures improved and stable. Reverted back to normal sinus mechanism. Patient demonstrates disinterest and lack of comprehension of her situation. 01/28/18 11:11 Cooperative with therapy. Sitting balance and strength is improved. More awareness of left side noted. Back in atrial flutter. INR is therapeutic. - Interventions to Obtain Goals PT Treatment Plan: Balance/Proprioception, Functional Activities, Gait Training , Patient/Family Education, Therapeutic Exercise OT Treatment Plan: ADL (Basic Care), Balance Training, IADL, Pt./Family Education, Ther. Exercise for ADL Goals Progress/Modifications: Has reverted back to atrial flutter. INR is therapeutic. She remains on amiodarone per recommendations of cardiology. She is asymptomatic with regard to her heart rhythm and does not display evidence of shortness of breath or chest pain. She is cooperative with therapy and does display improved sitting balance and core balance. Also she is a bit more aware of her left side. She remains oriented although clearly has difficulty with carryover from one day to the next. Educational efforts are questionable. Overall we will continue working with her for the time being as she is tolerating therapy well and is making progress.
[2018-01-28] MEDS ORDERED: WARFARIN 2 MG TABLET PO SCH (12:00)
[2018-01-28] MEDS: TRAMADOL 50 MG TABLET PO PRN ×2 (17:11→23:31)
[2018-01-28] MEDS: TAMSULOSIN 0.4 MG CAPSULE PO SCH (20:15)
[2018-01-29] MEDS: TRAMADOL 50 MG TABLET PO PRN ×3 (06:02→21:12)
[2018-01-29] MEDS: POLYETHYL GLYCOL 3350 17gm PACKET PO SCH (08:37)
[2018-01-29] MEDS: SENNA + DOCUSATE TABLET PO SCH ×2 (08:37→21:12)
[2018-01-29] MEDS: AMIODARONE 200 MG TABLET PO SCH ×2 (08:37→21:11)
[2018-01-29] MEDS: SERTRALINE 50 MG TABLET PO SCH (08:37)
[2018-01-29] MEDS: ATENOLOL 25 MG TABLET PO SCH (08:38)
[2018-01-29] MEDS: ACETAMINOPHEN 325 MG TABLET PO PRN ×2 (08:41→23:45)
--- NOTE | 2018-01-29 09:46 | Pharmacy Consult ---
Pharmacy Consult-Warfarin - Laboratory Information 01/20/18 01/21/18 01/21/18 19:15 09:38 09:38 Hgb 11.4 L Hct 33.1 L INR 2.35 H 2.95 H AST ALT Albumin 01/22/18 01/22/18 01/22/18 13:39 13:39 13:39 Hgb 11.3 L Hct 32.8 L INR 2.58 H AST 27 ALT 23 Albumin 3.8 01/23/18 01/24/18 01/25/18 05:15 05:39 04:42 Hgb Hct INR 3.09 H 2.72 H 2.51 H AST ALT Albumin 01/26/18 01/27/18 01/28/18 04:41 04:29 04:44 Hgb Hct INR 2.42 H 2.34 H 2.67 H AST ALT Albumin - Consult Information COUMADIN CONSULT: Day 9 87 yr old female with history of A-Fib and Warfarin for anticoagulation. Home Warfarin dose= 5 mg po daily. goal INR = 2.0 to 3.0. Admit INR = 2.35 DATE INR DOSE 01/21 2.95 2.5 mg 01/22 2.58 2.5 mg 01/23 3.09 Held 01/24 2.72 2 mg 01/25 2.51 2 mg 01/26 2.42 2 mg 01/27 2.34 2.5 mg 01/28 2.67 2 mg 01/29 --- 2 mg po daily, Saturday/ INR no INR value was drawn today. Will order scheduled dose of Warfarin 2 mg p.o. daily @ 1200 and adjust the lab order to INR on Mondays and . Potential Drug-drug interaction exists between Amiodarone and Warfarin and has the potential to increase INR and risk of bleeding. The Pharmacy will continue to monitor the INR and adjust the warfarin dose accordingly. Thank you, Dolores Mcintosh RP
--- NOTE | 2018-01-29 11:40 | IRU Progress Note ---
- Subjective/Serverity of Illness Date: 01/29/18 Ms. Peguero continues to be primarily fixated on when she can go home. She is indeed making progress. She has much greater awareness of her left side. In addition she is using the NuStep device much better and is able to control some of movement of her left lower extremity. Her sitting balance is significantly improved. Previously she was leaning far to her left side on the NuStep device and now she is able to sit very much upright without assistance. Appetite is borderline. Blood pressures are controlled. Remains in and out of atrial fibrillation. Review of telemetry strips indicates she is back in sinus mechanism. She is on warfarin with therapeutic INR. No evidence of bleeding. Exam Vital Signs: Temperature 98.4 F 01/29/18 07:40 Pulse Rate 69 01/29/18 08:00 Respiratory Rate 20 01/29/18 07:40 Blood Pressure 124/65 01/29/18 07:40 Pulse Oximetry 93 01/29/18 07:40 Height/Weight/BMI: Height 1.57 m Weight 59.9 kg Body Mass Index 23.6 - Constitutional Present: no acute distress, well nourished, well developed, cooperative - Routine HEENT Exam Eye: Present: EOMI ENT: Present: mucous membranes moist, dentition normal - Routine Respiratory Exam Present: CTA bilaterally. Absent: wheezes - Routine Cardiovascular Exam Present: RRR, S1, S2, murmur - Routine Abdominal Exam Present: soft, normoactive bowel sounds, non distended. Absent: tenderness - Routine Extremities Exam Present: normal capillary refill - Routine Skin Exam Present: dry, warm - Routine Neurological Exam Present: alert, oriented X3, motor deficit (left upper extremity remains with minimal movement. Left lower extremity is able to be controlled a bit better.), facial asymmetry. Absent: CN II-XII intact - Routine Psychiatric Exam Present: normal affect, cooperative, anxious. Absent: good insight, good judgment Results IRU - Labs Labs: Have reviewed other providers notes and chart data. IRU A/P (1) Ischemic cerebrovascular accident (CVA) Current visit: Yes Status: Acute Patient has had no evidence of new neurologic event. The initial stroke was evidently cardioembolic. Remains on warfarin with adequate control of her INR. No active bleeding. Left lower extremity is improving a bit. Left upper extremity remains nonfunctional but occasionally moves. Sitting balance is improved. Strength is improved. Awareness of her left side is improved. (2) Hypertension Qualifiers: Hypertension type: essential hypertension Qualified Code(s): I10 - Essential (primary) hypertension Current visit: Yes Status: Chronic Blood pressures overall are adequately controlled. (3) Diastolic heart failure Qualifiers: Heart failure chronicity: chronic Qualified Code(s): I50.32 - Chronic diastolic (congestive) heart failure Current visit: Yes Status: Chronic (4) Paroxysmal atrial fibrillation Current visit: Yes Status: Chronic Has therapeutic INR. Back in sinus mechanism on telemetry. (5) Low back pain Qualifiers: Chronicity: chronic Back pain laterality: midline Sciatica presence: without sciatica Qualified Code(s): M54.5 - Low back pain; G89.29 - Other chronic pain Current visit: Yes Status: Chronic Patient complained of low back pain yesterday to her family. They requested something for this. Placed her on tramadol. (6) Leukocytosis Qualifiers: Leukocytosis type: unspecified Qualified Code(s): D72.829 - Elevated white blood cell count, unspecified Current visit: Yes Status: Resolved DVT Prophylaxis: Coumadin Resuscitation Status: Do Not Resuscitate - Course Hospital Course: Golden Rodriguez MD: 01/21/18 10:23 Difficult night with hallucinations and agitation. Somnolence this morning. Blood pressures are stable. White count elevated. Neurologically no change. 01/23/18 10:42 White count resolved to normal. She is more awake and alert. Dense left-sided neglect. Cooperative with therapy. 01/24/18 11:11 Neurologically improved with better movement of left upper extremity. Cooperative with therapy. Continues to believe that she can go home anytime. UTI treated with cephalexin and tolerated well. Blood pressures a bit low. 01/27/18 10:18 Able to provide some technical support professional strength with left hand which is new. Blood pressures improved and stable. Reverted back to normal sinus mechanism. Patient demonstrates disinterest and lack of comprehension of her situation. 01/28/18 11:11 Cooperative with therapy. Sitting balance and strength is improved. More awareness of left side noted. Back in atrial flutter. INR is therapeutic. 01/29/18 11:41 Progressing slowly with therapy. Sitting balance and left-sided awareness improved. Back in sinus mechanism. Cooperative with therapy. - Interventions to Obtain Goals PT Treatment Plan: Balance/Proprioception, Functional Activities, Gait Training , Patient/Family Education, Therapeutic Exercise OT Treatment Plan: ADL (Basic Care), Balance Training, IADL, Pt./Family Education, Ther. Exercise for ADL Goals Progress/Modifications: Because of her low back pain, I started tramadol yesterday. I am also aware that she is on sertraline so we will monitor this. She does have a tendency toward constipation and we will also monitor that. Remains on MiraLAX. She is cooperative with therapy and able to do more with the NuStep device. Left -sided awareness and use of left lower extremity is improved. Her blood pressures are adequately controlled. She continues, however, to have markedly reduced awareness of her overall status. She continues to want to go home today. She is unaware that she is unable to take care of herself at present.
[2018-01-29] MEDS: WARFARIN 2 MG TABLET PO SCH (12:14)
[2018-01-29] MEDS: TAMSULOSIN 0.4 MG CAPSULE PO SCH (21:11)
[2018-01-30] MEDS: TRAMADOL 50 MG TABLET PO PRN ×4 (05:12→23:26)
--- NOTE | 2018-01-30 07:36 | Pharmacy Consult ---
Pharmacy Consult-Warfarin - Laboratory Information 01/20/18 01/21/18 01/21/18 19:15 09:38 09:38 Hgb 11.4 L Hct 33.1 L INR 2.35 H 2.95 H AST ALT Albumin 01/22/18 01/22/18 01/22/18 13:39 13:39 13:39 Hgb 11.3 L Hct 32.8 L INR 2.58 H AST 27 ALT 23 Albumin 3.8 01/23/18 01/24/18 01/25/18 05:15 05:39 04:42 Hgb Hct INR 3.09 H 2.72 H 2.51 H AST ALT Albumin 01/26/18 01/27/18 01/28/18 04:41 04:29 04:44 Hgb Hct INR 2.42 H 2.34 H 2.67 H AST ALT Albumin 01/30/18 05:31 Hgb Hct INR 2.36 H AST ALT Albumin - Consult Information Continue with warfarin 2mg po daily at noon for now. I ordered a 1 x INR for (outside of Saturday and draws) to be sure INR is not dropping below 2. Thanks
[2018-01-30] MEDS: SENNA + DOCUSATE TABLET PO SCH ×2 (08:19→20:18)
[2018-01-30] MEDS: SALINE FLUSH 10ml SYRINGE IV PRN (08:19)
[2018-01-30] MEDS: SERTRALINE 50 MG TABLET PO SCH (08:19)
[2018-01-30] MEDS: POLYETHYL GLYCOL 3350 17gm PACKET PO SCH (08:19)
[2018-01-30] MEDS: ATENOLOL 25 MG TABLET PO SCH (08:19)
[2018-01-30] MEDS: AMIODARONE 200 MG TABLET PO SCH ×2 (08:19→20:19)
[2018-01-30] MEDS ORDERED: WARFARIN 2.5 MG TABLET PO SCH (12:00)
--- NOTE | 2018-01-30 12:16 | Progress Note ---
- Date 01/30/18 Subjective: Consuelo was seen while working with therapy. She is doing better in regards to her left-sided neglect, but continues to have difficulty following commands and understanding safety measures. She frequently when she can go home. She complains of chronic back pain and reports having a kyphoplasty. Oral intake overall has been good. Last bowel movement was on 01/28/18. Nurses report that she is having cloudy and foul-smelling urine. Objective Vital signs: Temperature 98.3 F 01/30/18 08:00 Pulse Rate 62 01/30/18 08:00 Respiratory Rate 14 01/30/18 08:00 Blood Pressure 127/62 01/30/18 08:00 Pulse Oximetry 97 01/30/18 08:00 Height/Weight/BMI: Height 1.57 m Weight 59.9 kg Body Mass Index 23.6 - Constitutional Present: no acute distress, well nourished, well developed - Routine HEENT Exam Head: Present: normocephalic - Routine Respiratory Exam Present: CTA bilaterally - Routine Cardiovascular Exam Present: RRR, S1, S2 - Routine Abdominal Exam Present: non tender, distended. Absent: normoactive bowel sounds (hyperactive) - Routine Extremities Exam Present: no edema - Routine Back/Spine/Pelvis Exam Comments: Heating pad applied to back - Routine Skin Exam Present: intact, dry, warm - Routine Neurological Exam Present: alert, normal speech Unable to follow commands to move left lower extremity, but will hold left upper extremity to prevent it from falling down onto her chest. Staff report that she has been inconsistent in following commands regarding left upper and lower extremity strength cues. - Routine Psychiatric Exam Present: normal affect Results - Labs CBC & Chem 7: 01/22/18 13:39 01/28/18 04:44 Microbiology Results: Microbiology 01/21/18 16:35 Urine, Voided (Cc/notcc) Urine Culture - Final Escherichia coli Assessment and Plan Assessment and Plan: Assessment: 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 Leukocytosis - present on admission - resolved. Anemia - present on admission. E. coli UTI Hypokalemia Anticoagulation with warfarin, therapeutic INR (goal between 2-3). Paroxysmal A-fib with history of RVR. Hypertension. Probable PFO. History of urinary retention. Diastolic cardiac dysfunction, grade I - EF 70-75%. Depression. Constipation. High fall risk. History of chronic compression fractures with chronic back pain. Hyperlipidemia. Plan - 01/30/18 Recheck UA due to cloudy, foul-smelling urine. She completed a course of Keflex for recent Escherichia coli UTI. Work on bowel motivation. Noted mild abdominal distention today with hyperactive bowel sounds. BMP last rechecked on 01/28/18 showed improvement in potassium level. Renal function is stable. INR is therapeutic. Dr. Rodriguez' notes reviewed. D/W nursing. DVT Prophylaxis: Coumadin Resuscitation Status: Do Not Resuscitate - Physician Narrative Narrative: Date: 01/30/18 Time: 1213 Hospital Course Summary Disclaimer: The visit summary below is not to be considered part of the above Progress Note. Hospital Course: Plan - 01/21/18 Agree with admission to IRU for strengthening and improvement in functional abilities. Monitor closely as patient is a high fall risk. Labs on admission revealed leukocytosis (WBC 12.1). Will try and obtain UA now given increase in behaviors over night. Afebrile now. Mild anemia noted - monitor periodically throughout admission. No current signs of bleeding. Monitor for signs of bleeding with current anticoagulation. Started on amiodarone 400mg BID in [place] due to a-fib with occasional RVR. Currently rate controlled a-fib. Monitor closely on telemetry. Patient to continue amiodarone 400mg BID until 01/26/18 at which time she was be decreased to 200mg BID until follow up with Dr. Araujo following discharge from IRU. INR currently therapeutic at 2.95. Pharmacy to manage. INR to be monitor daily to ensure anticoagulation is between range 2-3. Seen and evaluated by speech and no diet changes recommended at this time. Monitor closely for signs of aspiration. Monitor daily blood pressure and heart rate closely. Goal blood pressure <180 SBP. Continue atenolol 50mg daily. Hydralazine PRN SBP >160 SBP. Monitor mood closely for signs of depression and behavioral changes. Continue Zoloft. Bowel motivation given history of constipation and no recent BM noted. Will recheck labs in AM to monitor blood counts, electrolytes and renal function. Upon discharge, patient's care to be returned to her PCP, Dr. Caty Gipson. Patient is a DNR. 01/24/18 PAF - pt was in A-fib from about [id number] today. Currently back in NSR. Cont Coumadin, amiodarone, atenolol -- however BP has been running low today; will decrease dosing of atenolol to 25 mg daily; hold if SBP <110. Amiodarone to be decreased to 200 mg BID on 01/27. Cont cephalexin for pansensitive E. coli UTI to complete 5 day course. K 3.5 - KDur 20 mEq x1. INR therapeutic. 01/27/18 VSS. INR therapeutic. Recheck BMP in am - K was slightly low at 3.5 on 01/24. Keflex course completed for E. coli UTI. Tolerating lower dose of atenolol without rise in bp. 01/30/18 Recheck UA due to cloudy, foul-smelling urine. She completed a course of Keflex for recent Escherichia coli UTI. Work on bowel motivation. Noted mild abdominal distention today with hyperactive bowel sounds. BMP last rechecked on 01/28/18 showed improvement in potassium level. Renal function is stable. INR is therapeutic.
[2018-01-30] MEDS: WARFARIN 2 MG TABLET PO SCH (12:39)
[2018-01-30] MEDS: TAMSULOSIN 0.4 MG CAPSULE PO SCH (20:20)
[2018-01-31] MEDS: ACETAMINOPHEN 325 MG TABLET PO PRN ×2 (03:56→21:04)
[2018-01-31] MEDS: TRAMADOL 50 MG TABLET PO PRN ×3 (06:36→21:03)
--- NOTE | 2018-01-31 07:57 | Pharmacy Consult ---
Pharmacy Consult-Warfarin - Laboratory Information 01/20/18 01/21/18 01/21/18 19:15 09:38 09:38 Hgb 11.4 L Hct 33.1 L INR 2.35 H 2.95 H AST ALT Albumin 01/22/18 01/22/18 01/22/18 13:39 13:39 13:39 Hgb 11.3 L Hct 32.8 L INR 2.58 H AST 27 ALT 23 Albumin 3.8 01/23/18 01/24/18 01/25/18 05:15 05:39 04:42 Hgb Hct INR 3.09 H 2.72 H 2.51 H AST ALT Albumin 01/26/18 01/27/18 01/28/18 04:41 04:29 04:44 Hgb Hct INR 2.42 H 2.34 H 2.67 H AST ALT Albumin 01/30/18 01/31/18 05:31 04:46 Hgb Hct INR 2.36 H 2.38 H AST ALT Albumin - Consult Information INR is in target range. Will continue warfarin 2mg po daily. Thank you.
[2018-01-31] MEDS: SERTRALINE 50 MG TABLET PO SCH (09:01)
[2018-01-31] MEDS: AMIODARONE 200 MG TABLET PO SCH ×2 (09:01→20:59)
[2018-01-31] MEDS: SALINE FLUSH 10ml SYRINGE IV PRN ×3 (09:01→21:00)
[2018-01-31] MEDS: SENNA + DOCUSATE TABLET PO SCH ×2 (09:01→20:59)
[2018-01-31] MEDS: ATENOLOL 25 MG TABLET PO SCH (09:01)
[2018-01-31] MEDS: POLYETHYL GLYCOL 3350 17gm PACKET PO SCH (09:02)
--- NOTE | 2018-01-31 10:55 | IRU Progress Note ---
- Subjective/Serverity of Illness Date: 01/31/18 Mrs. Peguero was evaluated in her room on inpatient rehabilitation. Once again she asks when she can go home. I told her that at this time she is not safe to go home because of the weakness in the left side. She is able to raise the left arm to command but it is otherwise not usable at this time. Blood pressures appear to be stable. Heart exam reveals a regular rhythm at present. Remains on telemetry. Her INR is therapeutic. Neurologically she is unchanged. She does have left-sided neglect. When I called her name she looked to the right side but ultimately was able to redirect to the left side with encouragement. From a therapy standpoint she remains total assistance for lower body dressing maximum assistance for upper body dressing and total assistance for transfers. Exam Vital Signs: Temperature 98.1 F 01/31/18 07:54 Pulse Rate 63 01/31/18 08:00 Respiratory Rate 16 01/31/18 07:54 Blood Pressure 117/57 01/31/18 07:54 Pulse Oximetry 91 01/31/18 07:54 Height/Weight/BMI: Height 1.57 m Weight 63 kg Body Mass Index 23.6 - Constitutional Present: no acute distress, well nourished, well developed, average body habitus , cooperative Comments: Continues to appear apathetic and disengaged. - Routine HEENT Exam Eye: Present: EOMI ENT: Present: mucous membranes moist - Routine Respiratory Exam Present: CTA bilaterally. Absent: wheezes - Routine Cardiovascular Exam Present: RRR, S1, S2. Absent: murmur - Routine Abdominal Exam Present: soft, normoactive bowel sounds, non distended. Absent: tenderness - Routine Extremities Exam Present: no edema, normal capillary refill - Routine Skin Exam Present: dry, warm - Routine Neurological Exam Present: alert, motor deficit. Absent: oriented X3, CN II-XII intact She is able to move her left upper extremity with encouragement. However it is nonpurposeful. Left lower extremity remains weak. - Routine Psychiatric Exam Present: cooperative. Absent: good insight, good judgment IRU A/P (1) Ischemic cerebrovascular accident (CVA) Current visit: Yes Status: Acute Remains cooperative with therapy but only slow progress. Team meeting today for further multidisciplinary input. Unchanged neurologically. (2) Hypertension Qualifiers: Hypertension type: essential hypertension Qualified Code(s): I10 - Essential (primary) hypertension Current visit: Yes Status: Chronic Blood pressures are well controlled. (3) Diastolic heart failure Qualifiers: Heart failure chronicity: chronic Qualified Code(s): I50.32 - Chronic diastolic (congestive) heart failure Current visit: Yes Status: Chronic (4) Paroxysmal atrial fibrillation Current visit: Yes Status: Chronic Clinically she is in a regular rhythm at present. Her INR is therapeutic. (5) Low back pain Qualifiers: Chronicity: chronic Back pain laterality: midline Sciatica presence: without sciatica Qualified Code(s): M54.5 - Low back pain; G89.29 - Other chronic pain Current visit: Yes Status: Chronic (6) Leukocytosis Qualifiers: Leukocytosis type: unspecified Qualified Code(s): D72.829 - Elevated white blood cell count, unspecified Current visit: Yes Status: Resolved DVT Prophylaxis: Coumadin Resuscitation Status: Do Not Resuscitate - Course Hospital Course: Golden Rodriguez MD: 01/21/18 10:23 Difficult night with hallucinations and agitation. Somnolence this morning. Blood pressures are stable. White count elevated. Neurologically no change. 01/23/18 10:42 White count resolved to normal. She is more awake and alert. Dense left-sided neglect. Cooperative with therapy. 01/24/18 11:11 Neurologically improved with better movement of left upper extremity. Cooperative with therapy. Continues to believe that she can go home anytime. UTI treated with cephalexin and tolerated well. Blood pressures a bit low. 01/27/18 10:18 Able to provide some thermal cutter hand strength with left hand which is new. Blood pressures improved and stable. Reverted back to normal sinus mechanism. Patient demonstrates disinterest and lack of comprehension of her situation. 01/28/18 11:11 Cooperative with therapy. Sitting balance and strength is improved. More awareness of left side noted. Back in atrial flutter. INR is therapeutic. 01/29/18 11:41 Progressing slowly with therapy. Sitting balance and left-sided awareness improved. Back in sinus mechanism. Cooperative with therapy. 01/31/18 10:55 Progress is slow. Continues to be somewhat aloof and apathetic. Medically she is stable. INR is therapeutic. - Interventions to Obtain Goals PT Treatment Plan: Balance/Proprioception, Functional Activities, Gait Training , Patient/Family Education, Therapeutic Exercise OT Treatment Plan: ADL (Basic Care), Balance Training, IADL, Pt./Family Education, Ther. Exercise for ADL
[2018-01-31] MEDS: WARFARIN 2 MG TABLET PO SCH (12:11)
--- NOTE | 2018-01-31 14:42 | IRU Team Meeting ---
IRU Team Meeting - Nursing Bladder Assistive Devices Utilized:: Bedside Commode, Absorbent Pad Bladder Management Level of Assist: Total Assistance Bladder Frequency of Accidents: No accidents Bowel Assistive Devices Utilized:: Medication, Bedside Commode, Absorbent Pad Bowel Management Level of Assist: Modified Independent Bowel Frequency of Accidents: No accidents Vital Signs: Vital Signs - 24 hr 01/30/18 15:26 01/30/18 16:00 01/30/18 23:20 Temperature 98.2 F 98.3 F Pulse Rate 66 65 64 Respiratory Rate 18 20 Blood Pressure 125/59 117/67 Pulse Oximetry 94 92 01/30/18 23:26 01/31/18 00:00 01/31/18 07:54 Temperature 98.1 F Pulse Rate 62 62 Respiratory Rate 20 16 Blood Pressure 117/57 Pulse Oximetry 91 01/31/18 08:00 Temperature Pulse Rate 63 Respiratory Rate Blood Pressure Pulse Oximetry Current Medications: Acetaminophen (Tylenol) 650 mg PO Q4HR PRN PRN Reason: Pain Last Admin: 01/31/18 03:56 Dose: 650 mg Amiodarone HCl (Pacerone) 200 mg PO BID [facility] Last Admin: 01/31/18 09:01 Dose: 200 mg Atenolol (Tenormin) 25 mg PO DAILY [facility] Last Admin: 01/31/18 09:01 Dose: 25 mg Hydralazine HCl (Apresoline) 5 mg IVP Q6H PRN Magnesium Hydroxide (Mom) 30 ml PO DAILY PRN PRN Reason: Constipation Last Admin: 01/31/18 09:01 Dose: 30 ml Polyethylene Glycol (Miralax) 17 gm PO DAILY [facility] Last Admin: 01/31/18 09:02 Dose: 17 gm Senna/Docusate Sodium (Senna Plus Tablet) 1 tab PO BID [facility] Last Admin: 01/31/18 09:01 Dose: 1 tab Sertraline HCl (Zoloft) 50 mg PO DAILY [facility] Last Admin: 01/31/18 09:01 Dose: 50 mg Sodium Chloride (Iv Flush) 10 ml IV PRN PRN PRN Reason: Flushing Last Admin: 01/31/18 09:01 Dose: 10 ml Tamsulosin HCl (Flomax) 0.4 mg PO HS [facility] Last Admin: 01/30/18 20:20 Dose: 0.4 mg Tramadol HCl (Ultram) 50 mg PO Q6H PRN PRN Reason: Pain Last Admin: 01/31/18 06:36 Dose: 50 mg Warfarin Sodium (Coumadin Protocol) 0 [facility] NOTE NIXON Warfarin Sodium (Coumadin) 2 mg PO NOON NIXON Last Admin: 01/31/18 12:11 Dose: 2 mg Current Medical Issues: Right hemispheric cardioembolic CVA affecting left side of body, reduced cognition and awareness, constipation, recent UTI with reassessment pending, paroxysmal atrial fibrillation, chronic back pain Comments: I certify that I personally led the interdisciplinary team meeting and agree with comments, barriers and goals indicated. Team meeting was held in the patient's room with the patient and the following family members present: patient's son and daughter in law Consuelo is going in and out of atrial fibrillation but with controlled ventricular response. This is asymptomatic. Her INR is therapeutic and she has no evidence of bleeding. Blood pressures are stable. Recent repeat urinalysis is suggestive of recurrent UTI so culture of urine is obtained. - Speech Therapy Patient is working with speech therapy to improve awareness of left side (left romel-neglect). She is making progress in this regard. Her swallowing is improved. Also working on cognition. - Physical Therapy Bed, Chair, Wheelchair Transfer Assist: Total Assistance, 2 or More Person Assist Ambulation Ability: Total Assistance, 2 or More Person Assist Ambulation Distance: 8 Wheelchair Propulsion Ability: Total Assistance, 1 Person Assist Wheelchair Propulsion Distance: 40 Stair Climbing Ability: Patient Unsafe/Unable Car Transfer Ability: Patient Unsafe/Unable Comments: Patient requires maximum assistance to total assistance for all transfers. Improving with regard to use of NuStep device. - Occupational Therapy Eating Ability: Stand By Assist/Supervision Grooming Ability: Stand By Assist/Supervision Bathing Ability: Moderate Assistance Upper Body Dressing Ability: Maximal Assistance Lower Body Dressing Ability: Total Assistance Tub Transfer Assist: Patient Unsafe/Unable Toileting Assist: Total Assistance Toilet Transfer Assist: Maximal Assistance Comments: Patient making small gains toward occupational therapy goals. Continues to demonstrate left-sided neglect and requires verbal cues and tactile cues to attend to her left side with dressing tasks. Sitting balance is improved. Demonstrate reduced insight into her situation. - Goals Physical Therapy Goals: 01/24/18 Goals: 1.) Transfers with moderate assistance - partially met, inconsistent. 2.) Correct midline orientation in standing with 1 verbal cue and sustain for one minute - not met, continue. 01/31/18 Goals: 1. ) Ambulate 15 feet advancing right lower extremity on own with maximal assist for left lower extremity. 2.) Propel wheelchair 50 feet with supervision. Occupational Therapy Goals: OT goals 01/24/18, 01/31/18: 1.) Upper body dressing with minimal assistance.- continue (mod-max assist). 2.) Lower body dressing with moderate assistance.- continue (total assist). 3.) Transfer to toilet with moderate assistance.- continue (max assist). 4.) Increase left upper body strength/ROM- in progress Speech Therapy Goals: Cogn-ling Goals: Pt will identify that a problem exists in a picture & verbally presented situations with 80% accuracy requiring mild cues. Pt will provide appropriate solutions for given problems with 80% accuracy requiring mild cues. Dysphagia: Pt will consume a regular consistency with thin liquids without outward signs of aspiration at bedside in 85% of trials. Pt will implement compensatory feeding strategies (alternate liquids/solid & slow pacing) in 80% of feeding trials /meals with minimal cues to aid recall. Pt will demonstrate self awareness when answering questions regarding situation information and etiology given minimal cues. Pt will verbalize general knowledge regarding stroke and its effect with minimal cues. Pt will demonstrate sustained attention during a 30 min treatment session requiring minimal cues. Pt will demonstrate awareness of objects in left visual filed dueing therapy session requiring minimal cues. Pt will visually scan left to right during reading and writing tasks with minimal assistance. - Barriers to Discharge Barriers to Attaining Goals: Balance (reduced balance noted. Balance activities and proprioceptive exercises are provided.), Medical Limitation (left romel- neglect noted. Forced use and activities on the left side are provided.), Other (reduced coordination noted. Coordination activities are provided.) - Care Plan Anticipated Length of Stay (days): 14 Anticipated Length of Stay: Reassess in one week Anticipated DC Destination: Home, Self Care, Home Health Service I have led this team conference and agree with the plan. Interventions/Goals: Patient has made some functional gains although they are small. She has improved with regard to sitting balance. Left romel-neglect continues to be an issue although perhaps improving a bit. Discussed with family that she will likely need skilled care following this. Continue working with patient as she has made some progress.
[2018-01-31] MEDS: TAMSULOSIN 0.4 MG CAPSULE PO SCH (21:00)
[2018-02-01] MEDS: TRAMADOL 50 MG TABLET PO PRN ×2 (08:57→20:41)
[2018-02-01] MEDS: SERTRALINE 50 MG TABLET PO SCH (08:58)
[2018-02-01] MEDS: SENNA + DOCUSATE TABLET PO SCH ×2 (08:58→20:36)
[2018-02-01] MEDS: SALINE FLUSH 10ml SYRINGE IV PRN ×3 (08:58→20:36)
[2018-02-01] MEDS: ATENOLOL 25 MG TABLET PO SCH (08:58)
[2018-02-01] MEDS: AMIODARONE 200 MG TABLET PO SCH ×2 (08:58→20:36)
[2018-02-01] MEDS: POLYETHYL GLYCOL 3350 17gm PACKET PO SCH (08:58)
[2018-02-01] MEDS: WARFARIN 2 MG TABLET PO SCH (12:27)
[2018-02-01] MEDS: ACETAMINOPHEN 325 MG TABLET PO PRN (17:51)
[2018-02-01] MEDS: TAMSULOSIN 0.4 MG CAPSULE PO SCH (20:36)
[2018-02-02] MEDS: ACETAMINOPHEN 325 MG TABLET PO PRN (00:39)
[2018-02-02] MEDS: TRAMADOL 50 MG TABLET PO PRN (06:07)
[2018-02-02] MEDS: SALINE FLUSH 10ml SYRINGE IV PRN ×2 (09:01→16:01)
[2018-02-02] MEDS: POLYETHYL GLYCOL 3350 17gm PACKET PO SCH (09:01)
[2018-02-02] MEDS: AMIODARONE 200 MG TABLET PO SCH ×2 (09:02→22:18)
[2018-02-02] MEDS: ATENOLOL 25 MG TABLET PO SCH (09:02)
[2018-02-02] MEDS: SERTRALINE 50 MG TABLET PO SCH (09:02)
[2018-02-02] MEDS: SENNA + DOCUSATE TABLET PO SCH ×2 (09:02→22:19)
[2018-02-02] MEDS: WARFARIN 2 MG TABLET PO SCH (13:11)
[2018-02-02] MEDS: TAMSULOSIN 0.4 MG CAPSULE PO SCH (22:18)
[2018-02-03] MEDS: SALINE FLUSH 10ml SYRINGE IV PRN ×4 (06:42→21:18)
[2018-02-03] MEDS: ATENOLOL 25 MG TABLET PO SCH (08:49)
[2018-02-03] MEDS: SERTRALINE 50 MG TABLET PO SCH (08:50)
[2018-02-03] MEDS: AMIODARONE 200 MG TABLET PO SCH ×2 (08:50→21:10)
[2018-02-03] MEDS: POLYETHYL GLYCOL 3350 17gm PACKET PO SCH (08:50)
[2018-02-03] MEDS: TRAMADOL 50 MG TABLET PO PRN ×2 (09:12→16:19)
[2018-02-03] MEDS: SENNA + DOCUSATE TABLET PO SCH ×2 (09:50→21:11)
--- NOTE | 2018-02-03 11:06 | Pharmacy Consult ---
Pharmacy Consult-Warfarin - Laboratory Information 01/20/18 01/21/18 01/21/18 19:15 09:38 09:38 Hgb 11.4 L Hct 33.1 L INR 2.35 H 2.95 H AST ALT Albumin 01/22/18 01/22/18 01/22/18 13:39 13:39 13:39 Hgb 11.3 L Hct 32.8 L INR 2.58 H AST 27 ALT 23 Albumin 3.8 01/23/18 01/24/18 01/25/18 05:15 05:39 04:42 Hgb Hct INR 3.09 H 2.72 H 2.51 H AST ALT Albumin 01/26/18 01/27/18 01/28/18 04:41 04:29 04:44 Hgb Hct INR 2.42 H 2.34 H 2.67 H AST ALT Albumin 01/30/18 01/31/18 02/01/18 05:31 04:46 05:08 Hgb 10.7 L Hct 32.7 L INR 2.36 H 2.38 H AST ALT Albumin 02/03/18 04:11 Hgb Hct INR 2.81 H AST ALT Albumin - Consult Information INR is in target range. Will continue warfarin 2mg daily at noon. Thank you.
--- NOTE | 2018-02-03 12:16 | IRU Progress Note ---
- Subjective/Serverity of Illness Date: 02/03/18 Ms. Peguero continues to basically want to go home. Educational efforts are not terribly successful from one day to the next. From a therapy standpoint she continues to require total to maximum assistance for transfers. She is able to move the left arm but not meaningfully nor functionally. She denies any chest pain or shortness of breath. Her appetite is poor. However she denies any nausea or vomiting. Repeat urinalysis continues to demonstrate presence of Escherichia coli. She is back on cephalexin to which the organism is sensitive. She is in a regular rhythm. Exam Vital Signs: Temperature 98.1 F 02/03/18 08:00 Pulse Rate 68 02/03/18 08:00 Respiratory Rate 20 02/03/18 08:00 Blood Pressure 106/60 02/03/18 08:00 Pulse Oximetry 89 L 02/03/18 08:00 Height/Weight/BMI: Height 1.57 m Weight 63 kg Body Mass Index 23.6 - Constitutional Present: well nourished, well developed, average body habitus - Routine HEENT Exam Eye: Present: EOMI ENT: Present: mucous membranes moist, dentition normal - Routine Neck Exam Present: supple - Routine Respiratory Exam Present: CTA bilaterally. Absent: wheezes - Routine Cardiovascular Exam Present: RRR, S1, S2. Absent: murmur - Routine Abdominal Exam Present: soft, normoactive bowel sounds, non distended. Absent: tenderness - Routine Extremities Exam Present: normal capillary refill - Routine Skin Exam Present: dry, warm - Routine Neurological Exam Present: alert, motor deficit (can move the left arm but not meaningfully nor does she have use of fingers. Can lift left leg up off the bed, but not against resistance. Plantar flexion is better than dorsiflexion at the left ankle.). Absent: oriented X3, CN II-XII intact - Routine Psychiatric Exam Present: normal affect. Absent: good insight, good judgment IRU A/P (1) Ischemic cerebrovascular accident (CVA) Current visit: Yes Status: Acute Her neurologic status is unchanged. Please see above description. Continues to require total assistance for transfers. Working with PT, OT and speech therapy. (2) Hypertension Qualifiers: Hypertension type: essential hypertension Qualified Code(s): I10 - Essential (primary) hypertension Current visit: Yes Status: Chronic Patient's blood pressures are reviewed. We are attempting to avoid excessive hypotension or hypertension. Currently they're adequately controlled. (3) Diastolic heart failure Qualifiers: Heart failure chronicity: chronic Qualified Code(s): I50.32 - Chronic diastolic (congestive) heart failure Current visit: Yes Status: Chronic (4) Paroxysmal atrial fibrillation Current visit: Yes Status: Chronic Clinically she is in a regular mechanism. Remains on warfarin with therapeutic INR. (5) Low back pain Qualifiers: Chronicity: chronic Back pain laterality: midline Sciatica presence: without sciatica Qualified Code(s): M54.5 - Low back pain; G89.29 - Other chronic pain Current visit: Yes Status: Chronic Complains of low back pain which is present at this time. Treated with positioning and tramadol. (6) Leukocytosis Qualifiers: Leukocytosis type: unspecified Qualified Code(s): D72.829 - Elevated white blood cell count, unspecified Current visit: Yes Status: Resolved DVT Prophylaxis: Coumadin Resuscitation Status: Do Not Resuscitate - Course Hospital Course: Golden Rodriguez MD: 01/21/18 10:23 Difficult night with hallucinations and agitation. Somnolence this morning. Blood pressures are stable. White count elevated. Neurologically no change. 01/23/18 10:42 White count resolved to normal. She is more awake and alert. Dense left-sided neglect. Cooperative with therapy. 01/24/18 11:11 Neurologically improved with better movement of left upper extremity. Cooperative with therapy. Continues to believe that she can go home anytime. UTI treated with cephalexin and tolerated well. Blood pressures a bit low. 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 Blood pressures improved and stable. Reverted back to normal sinus mechanism. Patient demonstrates disinterest and lack of comprehension of her situation. 01/28/18 11:11 Cooperative with therapy. Sitting balance and strength is improved. More awareness of left side noted. Back in atrial flutter. INR is therapeutic. 01/29/18 11:41 Progressing slowly with therapy. Sitting balance and left-sided awareness improved. Back in sinus mechanism. Cooperative with therapy. 01/31/18 10:55 Progress is slow. Continues to be somewhat aloof and apathetic. Medically she is stable. INR is therapeutic. 02/03/18 12:17 Progress is very slow. Can move left arm but not meaningfully. Educational carryover poor. Monitoring blood pressures, INR - Interventions to Obtain Goals PT Treatment Plan: Balance/Proprioception, Functional Activities, Gait Training , Patient/Family Education, Therapeutic Exercise OT Treatment Plan: ADL (Basic Care), Balance Training, IADL, Pt./Family Education, Ther. Exercise for ADL
[2018-02-03] MEDS: WARFARIN 2 MG TABLET PO SCH (12:30)
[2018-02-03] MEDS: TAMSULOSIN 0.4 MG CAPSULE PO SCH (21:10)
[2018-02-04] MEDS: ATENOLOL 25 MG TABLET PO SCH (08:13)
[2018-02-04] MEDS: SERTRALINE 50 MG TABLET PO SCH (08:14)
[2018-02-04] MEDS: AMIODARONE 200 MG TABLET PO SCH ×2 (08:14→22:12)
[2018-02-04] MEDS: SENNA + DOCUSATE TABLET PO SCH ×2 (08:15→22:16)
[2018-02-04] MEDS: POLYETHYL GLYCOL 3350 17gm PACKET PO SCH (08:15)
--- NOTE | 2018-02-04 09:33 | Progress Note ---
- Date 02/04/18 Subjective: Consuelo was resting in bed, seen after breakfast. She was tired and opened her eyes for a short period of time and denied any SOA or pain. However, she did not participate in exam -- i.e. she didn't attempt to move her left arm or her legs when asked. She reportedly continues to ask about going home but needs max assist for transfers. A few days ago the nurses noted that she was having urinary frequency with malodorous and cloudy urine, prompting the UC which showed a repeat UTI with pansensitive E. coli. Objective Vital signs: Temperature 98.1 F 02/04/18 08:00 Pulse Rate 53 L 02/04/18 08:00 Respiratory Rate 16 02/04/18 08:00 Blood Pressure 119/64 02/04/18 08:00 Pulse Oximetry 96 02/04/18 08:00 Height/Weight/BMI: Height 1.57 m Weight 57.5 kg Body Mass Index 23.6 - Constitutional Present: no acute distress, well nourished, well developed - Routine HEENT Exam Head: Present: normocephalic Eye: Absent: conjunctival icterus, scleral injection - Routine Respiratory Exam Present: CTA bilaterally - Routine Cardiovascular Exam Present: RRR, S1, S2 - Routine Abdominal Exam Present: soft, normoactive bowel sounds, non distended, non tender - Routine Extremities Exam Present: no edema - Routine Skin Exam Present: intact, dry, warm - Routine Neurological Exam Absent: alert (drowsy), moving all extremities (left arm/leg weakness - ongoing) - Routine Psychiatric Exam Present: unable to assess Results - Labs CBC & Chem 7: 02/01/18 05:08 02/01/18 05:08 Microbiology Results: Microbiology 01/30/18 21:18 Urine, Voided (Cc/notcc) Urine Culture - Final Escherichia coli 01/21/18 16:35 Urine, Voided (Cc/notcc) Urine Culture - Final Escherichia coli Assessment and Plan Assessment and Plan: Assessment: 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 Leukocytosis - present on admission - resolved. Normocytic anemia - present on admission. E. coli UTI Hypokalemia - resolved Anticoagulation with warfarin, therapeutic INR (goal between 2-3). Paroxysmal A-fib with history of RVR. Hypertension. Probable PFO. History of urinary retention. Diastolic cardiac dysfunction, grade I - EF 70-75%. Depression. Constipation. High fall risk. History of chronic compression fractures with chronic back pain. Hyperlipidemia. Plan - 02/04/18 Continue cephalexin, round 2, for repeated symptomatic E. coli UTI. Will treat for longer course of 7 days. Intermittent bradycardia with rates in the 50s-60s. BP under excellent control. Will decrease atenolol to 12.5 mg. Abd exam was benign and pt has been having regular bowel movements. INR is therapeutic. Dr. Rodriguez' notes reviewed. DVT Prophylaxis: Coumadin Resuscitation Status: Do Not Resuscitate - Physician Narrative Narrative: Date: 02/04/18 Time: 928 Hospital Course Summary Disclaimer: The visit summary below is not to be considered part of the above Progress Note. Hospital Course: Plan - 01/21/18 Agree with admission to IRU for strengthening and improvement in functional abilities. Monitor closely as patient is a high fall risk. Labs on admission revealed leukocytosis (WBC 12.1). Will try and obtain UA now given increase in behaviors over night. Afebrile now. Mild anemia noted - monitor periodically throughout admission. No current signs of bleeding. Monitor for signs of bleeding with current anticoagulation. Started on amiodarone 400mg BID in [place] due to a-fib with occasional RVR. Currently rate controlled a-fib. Monitor closely on telemetry. Patient to continue amiodarone 400mg BID until 01/26/18 at which time she was be decreased to 200mg BID until follow up with Dr. Araujo following discharge from IRU. INR currently therapeutic at 2.95. Pharmacy to manage. INR to be monitor daily to ensure anticoagulation is between range 2-3. Seen and evaluated by speech and no diet changes recommended at this time. Monitor closely for signs of aspiration. Monitor daily blood pressure and heart rate closely. Goal blood pressure <180 SBP. Continue atenolol 50mg daily. Hydralazine PRN SBP >160 SBP. Monitor mood closely for signs of depression and behavioral changes. Continue Zoloft. Bowel motivation given history of constipation and no recent BM noted. Will recheck labs in AM to monitor blood counts, electrolytes and renal function. Upon discharge, patient's care to be returned to her PCP, Dr. Caty Gipson. Patient is a DNR. 01/24/18 PAF - pt was in A-fib from about [id number] today. Currently back in NSR. Cont Coumadin, amiodarone, atenolol -- however BP has been running low today; will decrease dosing of atenolol to 25 mg daily; hold if SBP <110. Amiodarone to be decreased to 200 mg BID on 01/27. Cont cephalexin for pansensitive E. coli UTI to complete 5 day course. K 3.5 - KDur 20 mEq x1. INR therapeutic. 01/27/18 VSS. INR therapeutic. Recheck BMP in am - K was slightly low at 3.5 on 01/24. Keflex course completed for E. coli UTI. Tolerating lower dose of atenolol without rise in bp. 01/30/18 Recheck UA due to cloudy, foul-smelling urine. She completed a course of Keflex for recent Escherichia coli UTI. Work on bowel motivation. Noted mild abdominal distention today with hyperactive bowel sounds. BMP last rechecked on 01/28/18 showed improvement in potassium level. Renal function is stable. INR is therapeutic. 02/04/18 Continue cephalexin, round 2, for repeated symptomatic E. coli UTI. Will treat for longer course of 7 days. Intermittent bradycardia with rates in the 50s-60s. BP under excellent control. Will decrease atenolol to 12.5 mg. Abd exam was benign and pt has been having regular bowel movements.
--- NOTE | 2018-02-04 11:05 | IRU Progress Note ---
- Subjective/Serverity of Illness Date: 02/04/18 Consuelo continues to demonstrate apathy and lack of engagement. She will raise the left arm to command but again it is not able to move functionally. Cannot use left hand or fingers. She is awake and alert but enjoys resting and sleeping. Does complain of back pain which is a chronic issue. Tramadol appears to be helpful for her. Remains on cephalexin for her UTI. She denies any chest pain or shortness of breath. Her appetite is poor. From a therapy standpoint progress is slow. Continues to require total maximum assistance for transfers. Continues to have left-sided neglect. I reviewed telemetry strips which are consistent with normal sinus mechanism. Has occasional bradycardia. Atenolol has been reduced. Exam Vital Signs: Temperature 98.1 F 02/04/18 08:00 Pulse Rate 53 L 02/04/18 08:00 Respiratory Rate 16 02/04/18 08:00 Blood Pressure 119/64 02/04/18 08:00 Pulse Oximetry 96 02/04/18 08:00 Height/Weight/BMI: Height 1.57 m Weight 57.5 kg Body Mass Index 23.6 - Constitutional Present: no acute distress, well nourished, well developed, average body habitus Comments: Seems disengaged. - Routine HEENT Exam Eye: Present: EOMI ENT: Present: mucous membranes moist, dentition normal - Routine Respiratory Exam Present: CTA bilaterally. Absent: wheezes - Routine Cardiovascular Exam Present: RRR, S1, S2. Absent: murmur - Routine Abdominal Exam Present: soft, normoactive bowel sounds, non distended. Absent: tenderness - Routine Extremities Exam Present: no edema, normal capillary refill - Routine Skin Exam Present: dry, warm - Routine Neurological Exam Present: alert, motor deficit (motor deficit persists.). Absent: oriented X3, CN II-XII intact - Routine Psychiatric Exam Present: depressed. Absent: good insight, good judgment Results IRU - Labs Labs: Have reviewed other providers notes and other chart detail. IRU A/P (1) Ischemic cerebrovascular accident (CVA) Current visit: Yes Status: Acute Neurologically she is unchanged. Able to lift left arm to command but not usefully nor functionally. Cooperation with therapy is present although she is disengaged. Educational carryover is minimal. (2) Hypertension Qualifiers: Hypertension type: essential hypertension Qualified Code(s): I10 - Essential (primary) hypertension Current visit: Yes Status: Chronic Blood pressures are doing well. (3) Diastolic heart failure Qualifiers: Heart failure chronicity: chronic Qualified Code(s): I50.32 - Chronic diastolic (congestive) heart failure Current visit: Yes Status: Chronic (4) Paroxysmal atrial fibrillation Current visit: Yes Status: Chronic Remains in sinus mechanism with therapeutic INR. Atenolol reduced because of some bradycardia. (5) Low back pain Qualifiers: Chronicity: chronic Back pain laterality: midline Sciatica presence: without sciatica Qualified Code(s): M54.5 - Low back pain; G89.29 - Other chronic pain Current visit: Yes Status: Chronic (6) Leukocytosis Qualifiers: Leukocytosis type: unspecified Qualified Code(s): D72.829 - Elevated white blood cell count, unspecified Current visit: Yes Status: Resolved DVT Prophylaxis: Coumadin Resuscitation Status: Do Not Resuscitate - Course Hospital Course: Golden Rodriguez MD: 01/21/18 10:23 Difficult night with hallucinations and agitation. Somnolence this morning. Blood pressures are stable. White count elevated. Neurologically no change. 01/23/18 10:42 White count resolved to normal. She is more awake and alert. Dense left-sided neglect. Cooperative with therapy. 01/24/18 11:11 Neurologically improved with better movement of left upper extremity. Cooperative with therapy. Continues to believe that she can go home anytime. UTI treated with cephalexin and tolerated well. Blood pressures a bit low. 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 Blood pressures improved and stable. Reverted back to normal sinus mechanism. Patient demonstrates disinterest and lack of comprehension of her situation. 01/28/18 11:11 Cooperative with therapy. Sitting balance and strength is improved. More awareness of left side noted. Back in atrial flutter. INR is therapeutic. 01/29/18 11:41 Progressing slowly with therapy. Sitting balance and left-sided awareness improved. Back in sinus mechanism. Cooperative with therapy. 01/31/18 10:55 Progress is slow. Continues to be somewhat aloof and apathetic. Medically she is stable. INR is therapeutic. 02/03/18 12:17 Progress is very slow. Can move left arm but not meaningfully. Educational carryover poor. Monitoring blood pressures, INR 02/04/18 11:04 Progress continues to be slow. Poor educational carryover. INR therapeutic. Atenolol reduced due to bradycardia. - Interventions to Obtain Goals PT Treatment Plan: Balance/Proprioception, Functional Activities, Gait Training , Patient/Family Education, Therapeutic Exercise OT Treatment Plan: ADL (Basic Care), Balance Training, IADL, Pt./Family Education, Ther. Exercise for ADL
[2018-02-04] MEDS: WARFARIN 2 MG TABLET PO SCH (14:16)
[2018-02-04] MEDS: TRAMADOL 50 MG TABLET PO PRN ×2 (14:17→22:12)
[2018-02-04] MEDS: TAMSULOSIN 0.4 MG CAPSULE PO SCH (22:12)
[2018-02-04] MEDS: SALINE FLUSH 10ml SYRINGE IV PRN (22:13)
[2018-02-05] MEDS: POLYETHYL GLYCOL 3350 17gm PACKET PO SCH (08:45)
[2018-02-05] MEDS: SENNA + DOCUSATE TABLET PO SCH ×2 (08:45→20:00)
[2018-02-05] MEDS: SERTRALINE 50 MG TABLET PO SCH (09:05)
[2018-02-05] MEDS: ATENOLOL 25 MG TABLET PO SCH (09:05)
[2018-02-05] MEDS: TRAMADOL 50 MG TABLET PO PRN (09:05)
[2018-02-05] MEDS: AMIODARONE 200 MG TABLET PO SCH ×2 (09:05→20:02)
--- NOTE | 2018-02-05 11:23 | IRU Progress Note ---
- Subjective/Serverity of Illness Date: 02/05/18 Consuelo was resting in her room. I awakened her. She immediately awakened. She again had to be reminded to look to her left. However she was pleasant and denies any shortness of breath or chest pain. Continues to be somewhat apathetic with regard to therapy. She continues to required maximum assistance for dressing and transfers. Her INR is therapeutic. There is no evidence of bleeding. She is in a regular rhythm at present. Exam Vital Signs: Temperature 97.9 F 02/05/18 08:00 Pulse Rate 67 02/05/18 08:00 Respiratory Rate 20 02/05/18 08:00 Blood Pressure 108/58 02/05/18 08:00 Pulse Oximetry 90 02/05/18 08:00 Height/Weight/BMI: Height 1.57 m Weight 57.5 kg Body Mass Index 23.6 - Constitutional Present: no acute distress, well nourished, well developed - Routine HEENT Exam Eye: Present: EOMI ENT: Present: mucous membranes moist - Routine Respiratory Exam Present: CTA bilaterally. Absent: wheezes - Routine Cardiovascular Exam Present: RRR, S1, S2. Absent: murmur - Routine Abdominal Exam Present: soft, normoactive bowel sounds, non distended. Absent: tenderness - Routine Extremities Exam Present: normal capillary refill - Routine Skin Exam Present: dry, warm - Routine Neurological Exam Present: alert, motor deficit (left hemiparesis as before). Absent: oriented X3 , CN II-XII intact - Routine Psychiatric Exam Present: depressed. Absent: good insight, good judgment IRU A/P (1) Ischemic cerebrovascular accident (CVA) Current visit: Yes Status: Acute Left-sided weakness is unchanged. She again can move the left leg better than the left arm. Therapy progress is slow. (2) Hypertension Qualifiers: Hypertension type: essential hypertension Qualified Code(s): I10 - Essential (primary) hypertension Current visit: Yes Status: Chronic BP is doing well. (3) Diastolic heart failure Qualifiers: Heart failure chronicity: chronic Qualified Code(s): I50.32 - Chronic diastolic (congestive) heart failure Current visit: Yes Status: Chronic (4) Paroxysmal atrial fibrillation Current visit: Yes Status: Chronic Clinically she seems to be in a sinus mechanism. (5) Low back pain Qualifiers: Chronicity: chronic Back pain laterality: midline Sciatica presence: without sciatica Qualified Code(s): M54.5 - Low back pain; G89.29 - Other chronic pain Current visit: Yes Status: Chronic (6) Leukocytosis Qualifiers: Leukocytosis type: unspecified Qualified Code(s): D72.829 - Elevated white blood cell count, unspecified Current visit: Yes Status: Resolved DVT Prophylaxis: Coumadin Resuscitation Status: Do Not Resuscitate - Course Hospital Course: Golden Rodriguez MD: 01/21/18 10:23 Difficult night with hallucinations and agitation. Somnolence this morning. Blood pressures are stable. White count elevated. Neurologically no change. 01/23/18 10:42 White count resolved to normal. She is more awake and alert. Dense left-sided neglect. Cooperative with therapy. 01/24/18 11:11 Neurologically improved with better movement of left upper extremity. Cooperative with therapy. Continues to believe that she can go home anytime. UTI treated with cephalexin and tolerated well. Blood pressures a bit low. 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 Blood pressures improved and stable. Reverted back to normal sinus mechanism. Patient demonstrates disinterest and lack of comprehension of her situation. 01/28/18 11:11 Cooperative with therapy. Sitting balance and strength is improved. More awareness of left side noted. Back in atrial flutter. INR is therapeutic. 01/29/18 11:41 Progressing slowly with therapy. Sitting balance and left-sided awareness improved. Back in sinus mechanism. Cooperative with therapy. 01/31/18 10:55 Progress is slow. Continues to be somewhat aloof and apathetic. Medically she is stable. INR is therapeutic. 02/03/18 12:17 Progress is very slow. Can move left arm but not meaningfully. Educational carryover poor. Monitoring blood pressures, INR 02/04/18 11:04 Progress continues to be slow. Poor educational carryover. INR therapeutic. Atenolol reduced due to bradycardia. 02/05/18 11:23 Continues in sinus mechanism. Progress continues to be slow. Dressing with maximum assistance. Transfers with maximal assistance. - Interventions to Obtain Goals PT Treatment Plan: Balance/Proprioception, Functional Activities, Gait Training , Patient/Family Education, Therapeutic Exercise OT Treatment Plan: ADL (Basic Care), Balance Training, IADL, Pt./Family Education, Ther. Exercise for ADL
[2018-02-05] MEDS: WARFARIN 2 MG TABLET PO SCH (12:45)
[2018-02-05] MEDS: SALINE FLUSH 10ml SYRINGE IV PRN ×2 (12:46→18:15)
[2018-02-05] MEDS: ACETAMINOPHEN 325 MG TABLET PO PRN ×2 (13:03→20:01)
[2018-02-05] MEDS: TAMSULOSIN 0.4 MG CAPSULE PO SCH (20:02)
[2018-02-06 00:31] VITALS: PULSE 60
[2018-02-06] MEDS: TRAMADOL 50 MG TABLET PO PRN (00:48)
--- NOTE | 2018-02-06 07:24 | Pharmacy Consult ---
Pharmacy Consult-Warfarin - Laboratory Information 01/20/18 01/21/18 01/21/18 19:15 09:38 09:38 Hgb 11.4 L Hct 33.1 L INR 2.35 H 2.95 H AST ALT Albumin 01/22/18 01/22/18 01/22/18 13:39 13:39 13:39 Hgb 11.3 L Hct 32.8 L INR 2.58 H AST 27 ALT 23 Albumin 3.8 01/23/18 01/24/18 01/25/18 05:15 05:39 04:42 Hgb Hct INR 3.09 H 2.72 H 2.51 H AST ALT Albumin 01/26/18 01/27/18 01/28/18 04:41 04:29 04:44 Hgb Hct INR 2.42 H 2.34 H 2.67 H AST ALT Albumin 01/30/18 01/31/18 02/01/18 05:31 04:46 05:08 Hgb 10.7 L Hct 32.7 L INR 2.36 H 2.38 H AST ALT Albumin 02/03/18 02/06/18 04:11 04:41 Hgb Hct INR 2.81 H 3.27 H AST ALT Albumin - Consult Information We will hold warfarin 2mg po today. I ordered a one time INR for 02/07/18 and at that time we will determine future warfarin dosing. Thanks
[2018-02-06 07:30] VITALS: BP 122/59; RESP 16; TEMP 98; O2SAT 92
[2018-02-06] MEDS: AMIODARONE 200 MG TABLET PO SCH (08:22)
[2018-02-06] MEDS: ATENOLOL 25 MG TABLET PO SCH (08:22)
[2018-02-06] MEDS: SERTRALINE 50 MG TABLET PO SCH (08:23)
[2018-02-06] MEDS: POLYETHYL GLYCOL 3350 17gm PACKET PO SCH (08:27)
[2018-02-06] MEDS: SENNA + DOCUSATE TABLET PO SCH (08:27)
--- NOTE | 2018-02-06 10:47 | IRU Progress Note ---
- Subjective/Serverity of Illness Date: 02/06/18 Ms. Peguero was reassessed in her room on inpatient rehabilitation. The patient pulled out her IV. The hospitalist group discontinued her telemetry at that point. She remains in a regular rhythm, presumably sinus. There is no evidence of any bleeding. Her INR is slightly elevated at just over 3. Otherwise she is cooperative with therapy and requires total assistance for transfers and bathing. Continues to struggle with reduced hearing which is an impediment. She remains on cephalexin for her UTI. She was noted to have some puffiness of her left wrist today for the first time. I examined this. There is some puffiness noted but no evidence of ecchymosis nor trauma. She has full range of motion with both flexion and extension as well as lateral movement of the left wrist without discomfort. Exam Vital Signs: Temperature 98.0 F 02/06/18 07:30 Pulse Rate 60 02/06/18 07:30 Respiratory Rate 16 02/06/18 07:30 Blood Pressure 122/59 02/06/18 07:30 Pulse Oximetry 92 02/06/18 07:30 Height/Weight/BMI: Height 1.57 m Weight 57.5 kg Body Mass Index 23.6 - Constitutional Present: no acute distress, well nourished, well developed, average body habitus - Routine HEENT Exam Eye: Present: EOMI ENT: Present: mucous membranes moist - Routine Respiratory Exam Present: CTA bilaterally. Absent: wheezes - Routine Cardiovascular Exam Present: RRR, S1, S2. Absent: murmur - Routine Abdominal Exam Present: soft, normoactive bowel sounds, non distended. Absent: tenderness - Routine Extremities Exam Present: no edema, normal capillary refill - Routine Skin Exam Present: dry, warm - Routine Neurological Exam Present: alert, motor deficit (Unchanged left hemiparesis. Can lift left leg. Left arm moves non-purposefully.). Absent: oriented X3, CN II-XII intact - Routine Psychiatric Exam Present: normal affect Results IRU - Labs Labs: Have reviewed INR and other chart data. IRU A/P (1) Ischemic cerebrovascular accident (CVA) Current visit: Yes Status: Acute Patient continues to be somewhat aloof. Educational efforts are minimal from one day to the next. Team meeting today for further input regarding long-term prospects. (2) Hypertension Qualifiers: Hypertension type: essential hypertension Qualified Code(s): I10 - Essential (primary) hypertension Current visit: Yes Status: Chronic Blood pressures are adequately controlled. (3) Diastolic heart failure Qualifiers: Heart failure chronicity: chronic Qualified Code(s): I50.32 - Chronic diastolic (congestive) heart failure Current visit: Yes Status: Chronic (4) Paroxysmal atrial fibrillation Current visit: Yes Status: Chronic (5) Low back pain Qualifiers: Chronicity: chronic Back pain laterality: midline Sciatica presence: without sciatica Qualified Code(s): M54.5 - Low back pain; G89.29 - Other chronic pain Current visit: Yes Status: Chronic (6) Leukocytosis Qualifiers: Leukocytosis type: unspecified Qualified Code(s): D72.829 - Elevated white blood cell count, unspecified Current visit: Yes Status: Resolved DVT Prophylaxis: Coumadin Resuscitation Status: Do Not Resuscitate - Course Hospital Course: Golden Rodriguez MD: 01/21/18 10:23 Difficult night with hallucinations and agitation. Somnolence this morning. Blood pressures are stable. White count elevated. Neurologically no change. 01/23/18 10:42 White count resolved to normal. She is more awake and alert. Dense left-sided neglect. Cooperative with therapy. 01/24/18 11:11 Neurologically improved with better movement of left upper extremity. Cooperative with therapy. Continues to believe that she can go home anytime. UTI treated with cephalexin and tolerated well. Blood pressures a bit low. 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 Blood pressures improved and stable. Reverted back to normal sinus mechanism. Patient demonstrates disinterest and lack of comprehension of her situation. 01/28/18 11:11 Cooperative with therapy. Sitting balance and strength is improved. More awareness of left side noted. Back in atrial flutter. INR is therapeutic. 01/29/18 11:41 Progressing slowly with therapy. Sitting balance and left-sided awareness improved. Back in sinus mechanism. Cooperative with therapy. 01/31/18 10:55 Progress is slow. Continues to be somewhat aloof and apathetic. Medically she is stable. INR is therapeutic. 02/03/18 12:17 Progress is very slow. Can move left arm but not meaningfully. Educational carryover poor. Monitoring blood pressures, INR 02/04/18 11:04 Progress continues to be slow. Poor educational carryover. INR therapeutic. Atenolol reduced due to bradycardia. 02/05/18 11:23 Continues in sinus mechanism. Progress continues to be slow. Dressing with maximum assistance. Transfers with maximal assistance. 02/06/18 10:47 For progress. INR slightly elevated. Continues in sinus mechanism. Puffiness of left wrist without pain and without known trauma. - Interventions to Obtain Goals PT Treatment Plan: Balance/Proprioception, Functional Activities, Gait Training , Patient/Family Education, Therapeutic Exercise OT Treatment Plan: ADL (Basic Care), Balance Training, IADL, Pt./Family Education, Ther. Exercise for ADL Goals Progress/Modifications: Unfortunately patient's progress is very slow. We will continue for today and have a team meeting later on today for a multidisciplinary input into her prospects. She remains on cephalexin for UTI. Continues with left romel-neglect although improving a bit in that area. Has left wrist swelling but when I checked range of motion it was fine without evidence of pain. No evidence of trauma noted. There is no redness and no warmth however. Will defer to hospitalist with regard to further workup of this area.
--- NOTE | 2018-02-06 14:00 | IRU Team Meeting ---
IRU Team Meeting - Nursing Bladder Assistive Devices Utilized:: Medication, Bedside Commode, Absorbent Pad Bladder Management Level of Assist: Total Assistance Bladder Frequency of Accidents: No accidents; uses device Bowel Assistive Devices Utilized:: Medication, Bedside Commode, Absorbent Pad Bowel Management Level of Assist: Total Assistance Bowel Frequency of Accidents: No accidents Vital Signs: Vital Signs - 24 hr 02/05/18 16:00 02/05/18 19:56 02/06/18 00:00 Temperature 98.6 F 98.5 F Pulse Rate 65 64 60 Respiratory Rate 24 20 Blood Pressure 116/58 130/66 Pulse Oximetry 92 91 02/06/18 07:30 Temperature 98.0 F Pulse Rate 60 Respiratory Rate 16 Blood Pressure 122/59 Pulse Oximetry 92 Current Medications: Acetaminophen (Tylenol) 650 mg PO Q4HR PRN PRN Reason: Pain Last Admin: 02/05/18 20:01 Dose: 650 mg Amiodarone HCl (Pacerone) 200 mg PO BID [facility] Last Admin: 02/06/18 08:22 Dose: 200 mg Atenolol (Tenormin) 12.5 mg PO DAILY [facility] Last Admin: 02/06/18 08:22 Dose: 12.5 mg Cephalexin HCl (Keflex 500 Mg) 500 mg PO Q12HR [facility] Stop: 02/09/18 14:59 Last Admin: 02/06/18 08:22 Dose: 500 mg Hydralazine HCl (Apresoline) 5 mg IVP Q6H PRN Magnesium Hydroxide (Mom) 30 ml PO DAILY PRN PRN Reason: Constipation Last Admin: 02/01/18 17:52 Dose: 30 ml Polyethylene Glycol (Miralax) 17 gm PO DAILY [facility] Last Admin: 02/06/18 08:27 Dose: 17 gm Senna/Docusate Sodium (Senna Plus Tablet) 1 tab PO BID [facility] Last Admin: 02/06/18 08:27 Dose: 1 tab Sertraline HCl (Zoloft) 50 mg PO DAILY [facility] Last Admin: 02/06/18 08:23 Dose: 50 mg Sodium Chloride (Iv Flush) 10 ml IV PRN PRN PRN Reason: Flushing Last Admin: 02/05/18 18:15 Dose: 10 ml Tamsulosin HCl (Flomax) 0.4 mg PO [facility] Last Admin: 02/05/18 20:02 Dose: 0.4 mg Tramadol HCl (Ultram) 50 mg PO Q6H PRN PRN Reason: Pain Last Admin: 02/06/18 00:48 Dose: 50 mg Warfarin Sodium (Coumadin Protocol) 0 [facility] NOTE [facility] Warfarin Sodium (Coumadin) 2 mg PO NOON [facility] Last Admin: 02/05/18 12:45 Dose: 2 mg Current Medical Issues: 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 She is encouraged to utilize alternating liquids and solids. Still on a chopped diet. Has improvement in left romel-neglect. Some progress has been noted but minimal. - Physical Therapy Bed, Chair, Wheelchair Transfer Assist: Total Assistance Ambulation Ability: Total Assistance Ambulation Distance: 8 Wheelchair Propulsion Ability: Maximal Assistance Wheelchair Propulsion Distance: 50 Stair Climbing Ability: Patient Unsafe/Unable Car Transfer Ability: Patient Unsafe/Unable Comments: Patient has demonstrated some improvement in quad strength of left lower extremity. However still lacks hamstring strength. Demonstrate poor safety awareness with unilateral neglect and poor cognition. - Occupational Therapy Eating Ability: Stand By Assist/Supervision Grooming Ability: Maximal Assistance Bathing Ability: Total Assistance, 2 or More Person Assist Upper Body Dressing Ability: Total Assistance Lower Body Dressing Ability: Total Assistance Tub Transfer Assist: Patient Unsafe/Unable Toileting Assist: Total Assistance Toilet Transfer Assist: Total Assistance, 2 or More Person Assist Comments: Patient also has left lateral leaning in the shower due to weakness or portion of right upper extremity. Requires constant tactile cues and support for patient safety. - Goals Physical Therapy Goals: 01/24/18 Goals: 1.) Transfers with moderate assistance - partially met, inconsistent. 2.) Correct midline orientation in standing with 1 verbal cue and sustain for one minute - not met, continue. 01/31/18 Goals: 1. ) Ambulate 15 feet advancing right lower extremity on own with maximal assist for left lower extremity. -Discontinue. 2.) Propel wheelchair 50 feet with supervision. Partially met, for distance. 02/06/18 Goals: 1.) Follow simple 1 or 2 step commands with leg exercises. Occupational Therapy Goals: OT goals 01/24/18, 01/31/18, 02/06/18: 1.) Upper body dressing with minimal assistance.- continue (mod-max assist). 2.) Lower body dressing with moderate assistance.- continue (total assist). 3.) Transfer to toilet with moderate assistance.- continue (max assist). 4.) Increase left upper body strength/ROM- in progress. 5.) Discharge planning. Speech Therapy Goals: Cogn-ling Goals: Pt will identify that a problem exists in a picture & verbally presented situations with 80% accuracy requiring mild cues. Pt will provide appropriate solutions for given problems with 80% accuracy requiring mild cues. Dysphagia: Pt will consume a regular consistency with thin liquids without outward signs of aspiration at bedside in 85% of trials. Pt will implement compensatory feeding strategies (alternate liquids/solid & slow pacing) in 80% of feeding trials /meals with minimal cues to aid recall. Pt will demonstrate self awareness when answering questions regarding situation information and etiology given minimal cues. Pt will verbalize general knowledge regarding stroke and its effect with minimal cues. Pt will demonstrate sustained attention during a 30 min treatment session requiring minimal cues. Pt will demonstrate awareness of objects in left visual field during therapy session requiring minimal cues. (met). Pt will visually scan left to right during reading and writing tasks with minimal assistance. (met) - Barriers to Discharge Barriers to Attaining Goals: Weakness (reduced strength left side. Progressive resistive exercises encouraged.), Other (reduced cognition with reduced focus. Patient requires multiple cues.) - Care Plan Anticipated Length of Stay (days): 0 Anticipated Length of Stay: Reassess in one week Anticipated DC Destination: [facility]Facility I have led this team conference and agree with the plan. Interventions/Goals: Patient has plateaued with regard to functional gains. She is cooperative but remains aloof at times. At this point she is more appropriate for skilled care level of intensity. Medically she seems stable at present. Anticipate safe and successful transfer to skilled care later today or tomorrow.
--- NOTE | 2018-02-06 14:06 | Extended Care Facility Orders ---
Admission Orders Admit to:: Senior Living Allergies/Adverse Reactions: Allergies No Known Allergies Allergy (Verified 01/20/18 19:09) Admitting Diagnosis: CVA Admitting Physician: Golden Rodriguez MD Attending Physician: Golden Rodriguez MD Code Status: Do Not Resuscitate Anticiapted Length of Stay: 30 days or less Rehab Potential: fair Rehab Prognosis: fair, good Diet: 01/21/18 Dinner Regular Diet [DIET] Diet Modifications: Food Consistency: [facility]MEAT Comment: full supervision with meals Wound/Incision Care: N/A May use Facility Protocol or Standing Orders: Yes May have flu vaccine: Yes Evaluations/Treatment: Speech, PT, OT Senior Living Certification: I certify that SNF services are required to be given on an Inpatient basis because of the patients need for nursing home care on a continuing basis for the condition(s) for which he/she received inpatient hospital services prior to his/her transfer to the SNF. SNF inpatient care is necessary for the following reasons: monitoring atrial fib, INR, reduce fall risk. She requires supervision for eating to slow her eating and encourage alternating liquids and solids. Indication for Senior Living: Med Admininistration, Other - Additional Information In Event of Arrest: Do Not Start CPR Resident is Aware of Diagnosis: Yes Referrals: Alex Araujo MD [Physician] - 1 Week (Follow up for re-evaluation of a-fib and recent medications changes 1-2 weeks following discharge from IRU.) Rayray Nascimento [Physician] - 1 Month (Follow up for neurology re-evaluation in 1-2 months following discharge from IRU.) Caty Gipson MD [Primary Care Provider] - 1 Week (Follow up within 1 week of discharge from IRU for DEXA scan and post hospitalization evaluation. ) Additional Orders: Please supervise her while eating. She tends to be impulsive. Encourage her to slow down, eat small bites and alternate liquids and solids.
--- NOTE | 2018-02-06 15:59 | Discharge Summary ---
Discharge Information Date of admission: 01/20/18 18:20 Anticipated date of discharge: 02/06/18 Attending Physician: Golden Rodriguez MD Primary care physician: Caty Gipson MD Consults: 01/20/18 18:41 Physician Consult [CONS] Routine Consulting Provider: Joy Hernandez Reason For Exam: Medical management Ordering Provider has Notified Precast Worker: No - Discharge Diagnosis (1) Ischemic cerebrovascular accident (CVA) Status: Acute (2) Hypertension Status: Chronic (3) Diastolic heart failure Status: Chronic (4) Paroxysmal atrial fibrillation Status: Chronic (5) Low back pain Status: Chronic (6) Leukocytosis Status: Resolved 1. 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 Patient has oropharyngeal defect dysphagia requiring chopped foods, left romel-neglect, no purposeful movement of the left arm and reduced strength in the left leg. 2. Paroxysmal atrial fibrillation on warfarin 3. Benign essential hypertension 4. Chronic low back pain 5. Urinary tract infection present time of admission to inpatient rehabilitation , Escherichia coli, pansensitive. - Laboratory Labs: 02/01/18 05:08 02/01/18 05:08 - Microbiology Microbiology 01/30/18 21:18 Urine, Voided (Cc/notcc) Urine Culture - Final Escherichia coli 01/21/18 16:35 Urine, Voided (Cc/notcc) Urine Culture - Final Escherichia coli History of Present Illness HPI: Ms. Peguero is a pleasant 87-year-old female from [place], [place]. She was living independently at [place] for at least the last 8 years. She rode her bicycle to the [facility] on 01/16/18 where the staff noticed that she was not behaving normally. She appeared to be pale and had to be helped down off the bicycle. EMS was contacted and she was transferred to [facility] because of symptoms of right middle cerebral artery ischemic stroke were identified. At that location she was taken urgently for thrombectomy. She does have history of paroxysmal atrial fibrillation and previous TIA. She was seen in [place], Dr. Araujo and was started on warfarin shortly after her thrombectomy. The patient had developed multiple functional deficits. She has paroxysmal atrial fibrillation, hypertension and diastolic heart failure. Patient was stabilized while on acute care and transfer to acute inpatient rehabilitation at [facility] on 01/20/2018 for a comprehensive multidisciplinary approach to her recovery. Hospital Course This is a general summary of the patient's hospital course. For more details refer to the complete medical record. She was admitted to acute inpatient rehabilitation on January 20, 2018. She was followed by the hospitalist service as well as by Dr. Rodriguez, medical assistant supervisorcounty library director. Initially she was in and out of atrial fibrillation on telemetry but with fairly controlled ventricular response. Ultimately she remained in sinus mechanism. Amiodarone was adjusted as recommended by Dr. Araujo. Pharmacy monitored and adjusted her warfarin dosage. On the day of dismissal her INR was 3.27. It is recommended that the patient hold her warfarin today and then tomorrow start 2 mg daily with follow-up INR results to Dr. Caty Gipson in [place]. The patient had foul-smelling urine and a urine culture was obtained which grew Escherichia coli. This was present at the time of admission to IRU. It was pansensitive. She was started on cephalexin and treated. However follow-up urinalysis continued to demonstrate evidence of infection and she was treated for a longer course with cephalexin after repeat cultures were obtained. Second culture was obtained on January 30 with recommendations for cephalexin to run through 02/09/2018. The patient's blood pressures remained quite stable in the 120 - 132 range. Initial hemoglobin was 11.4 on 01/21/2018. Final hemoglobin was 10.7 on 2017. His potassium is normal. Creatinine is normal at 0.7. The following levels of functional competence are to be considered preliminary information. The reader is encouraged to refer to actual therapy notes and reports for specific details. The patient was followed by physical therapy while on acute inpatient rehabilitation. At the conclusion of her stay, the following functional competencies were identified: She continued to require moderate to total assistance for transfers. She was unable to ambulate. She continued demonstrate poor trunk strength and decreased endurance and overall strength. She did display lack of memory from one day to the next and had poor safety awareness and poor educational carryover. However interestingly she was able to recall the names of many of the caregivers. The patient was followed by occupational therapy while on acute inpatient rehabilitation. At the conclusion of her stay, the following functional competencies were identified: She required total assistance to perform upper and lower body dressing. Patient required total assistance for toileting and toilet transfers. The patient was followed and treated by speech therapy with regard to both cognition/linguistics as well as swallow safety. She was felt to be safe for regular liquids but required chopped foods in small portions. She tended to be impulsive about eating and requires supervision to make sure she eats slowly and chews well. She also requires encouragement to alternate liquids and solids to provide safe swallowing. The patient was very pleasant but continually asked when she can go home. Unfortunate she tended to plateau for physical therapy occupational therapy and speech therapy. Medically she was felt to be stable. She was transferred to [facility] on 02/06/2018 for continued PT and OT as well as long-term to monitor her cardiac status due to her atrial fibrillation in the past as well as the need to monitor her INRs. Follow-up will be with Dr. Gipson. Hospital course: Plan - 01/21/18 Agree with admission to IRU for strengthening and improvement in functional abilities. Monitor closely as patient is a high fall risk. Labs on admission revealed leukocytosis (WBC 12.1). Will try and obtain UA now given increase in behaviors over night. Afebrile now. Mild anemia noted - monitor periodically throughout admission. No current signs of bleeding. Monitor for signs of bleeding with current anticoagulation. Started on amiodarone 400mg BID in [place] due to a-fib with occasional RVR. Currently rate controlled a-fib. Monitor closely on telemetry. Patient to continue amiodarone 400mg BID until 01/26/18 at which time she was be decreased to 200mg BID until follow up with Dr. Araujo following discharge from IRU. INR currently therapeutic at 2.95. Pharmacy to manage. INR to be monitor daily to ensure anticoagulation is between range 2-3. Seen and evaluated by speech and no diet changes recommended at this time. Monitor closely for signs of aspiration. Monitor daily blood pressure and heart rate closely. Goal blood pressure <180 SBP. Continue atenolol 50mg daily. Hydralazine PRN SBP >160 SBP. Monitor mood closely for signs of depression and behavioral changes. Continue Zoloft. Bowel motivation given history of constipation and no recent BM noted. Will recheck labs in AM to monitor blood counts, electrolytes and renal function. Upon discharge, patient's care to be returned to her PCP, Dr. Caty Gipson. Patient is a DNR. 01/24/18 PAF - pt was in A-fib from about [id number] today. Currently back in NSR. Cont Coumadin, amiodarone, atenolol -- however BP has been running low today; will decrease dosing of atenolol to 25 mg daily; hold if SBP <110. Amiodarone to be decreased to 200 mg BID on 01/27. Cont cephalexin for pansensitive E. coli UTI to complete 5 day course. K 3.5 - KDur 20 mEq x1. INR therapeutic. 01/27/18 VSS. INR therapeutic. Recheck BMP in am - K was slightly low at 3.5 on 01/24. Keflex course completed for E. coli UTI. Tolerating lower dose of atenolol without rise in bp. 01/30/18 Recheck UA due to cloudy, foul-smelling urine. She completed a course of Keflex for recent Escherichia coli UTI. Work on bowel motivation. Noted mild abdominal distention today with hyperactive bowel sounds. BMP last rechecked on 01/28/18 showed improvement in potassium level. Renal function is stable. INR is therapeutic. 02/04/18 Continue cephalexin, round 2, for repeated symptomatic E. coli UTI. Will treat for longer course of 7 days. Intermittent bradycardia with rates in the 50s-60s. BP under excellent control. Will decrease atenolol to 12.5 mg. Abd exam was benign and pt has been having regular bowel movements. Time spent with patient: greater than 35 minutes Resuscitation Status: Do Not Resuscitate Discharge Plan - Med Rec/Dispo Referrals/Follow Up: Alex Araujo MD [Physician] - 1 Week (Follow up for re-evaluation of a-fib and recent medications changes 1-2 weeks following discharge from IRU.) Rayray Nascimento [Physician] - 1 Month (Follow up for neurology re-evaluation in 1-2 months following discharge from IRU.) Caty Gipson MD [Primary Care Provider] - 1 Week (Follow up within 1 week of discharge from IRU for DEXA scan and post hospitalization evaluation. ) Prescriptions: New Amiodarone [Pacerone] 200 mg PO BID tab Atorvastatin Calcium 80 mg PO HS #30 tab Milk of Magnesia [Mom] 30 ml PO DAILY PRN udc PRN Reason: Constipation PEG 3350 17gm PACKET [Miralax] 17 gm PO DAILY packet Senna + Docusate [Senna Plus Tablet] 1 tab PO BID tab Tramadol [Ultram] 50 mg PO Q6H PRN #30 tab PRN Reason: Pain CephALEXin [Keflex 500 mg] 500 mg PO Q12HR cap Atenolol [Tenormin] 12.5 mg PO DAILY tab Continue Tamsulosin [Flomax] 0.4 mg PO HS Sertraline HCl [Zoloft] 50 mg PO DAILY Acetaminophen [Tylenol] 650 mg PO Q4HR PRN PRN Reason: Pain Changed Warfarin Sodium [Coumadin] 2 mg PO HS #0 Discontinued Aspirin *EC* [Ecotrin] 1 tab PO DAILY Enoxaparin [Lovenox] 40 mg SQ DAILY Atenolol [Tenormin] 1 tab PO DAILY Docusate Sodium [Colace] 1 cap PO DAILY - Disposition 03 To SNU Not [facility] (SNF) - Dismissal Complete Discharge Instructions are:: Complete
--- NOTE | 2018-02-06 16:02 | Letter to Referring Physician ---
Dear Dr. Gipson, This is a brief note to bring you up-to-date on the status of Consuelo Peguero and her stay on the acute inpatient rehabilitation unit at [facility]. As you are likely aware, this patient was admitted to the [facility] on 01/16/18 for acute right MCA stroke, felt to be cardioembolic from her atrial fib. She underwent urgent thrombectomy. The patient was stabilized while on the acute level and admitted to inpatient rehabilitation unit at [facility] on January 20, 2018. While on inpatient rehabilitation, this patient was seen by occupational therapy , speech therapy and physical therapy and improved overall in her functional ability. We also monitored and managed the patient's atrial fib and blood pressure while on Acute Rehab. Please see a copy of the history and physical examination as well as discharge summary faxed separately for further details. Her family requested a pain pill for her chronic back pain. Tramadol 50 mg #30 was prescribed at dismissal. Please note that her INR on 02/06/2018 was 3.27. It is recommended that the patient hold her warfarin today and then tomorrow start 2 mg daily with follow- up INR to you. She also remains on cephalexin for a UTI with Escherichia coli. The patient unfortunately plateaued while on acute inpatient rehabilitation. For this reason she is being transferred to skilled care at [facility] for continued PT and OT as well as custodial to monitor her INR and atrial fibrillation (however she has been in sinus mechanism for the last week or so here). Thank you for allowing us to be involved in this nice patient's care. Please contact me directly should you have any questions regarding their stay on the inpatient rehabilitation unit. Sincerely, Golden Rodriguez M.D.
== END 2018-02-06 16:15 | DRG 57 ==
PROVIDERS: ADMIT Internal Medicine; ATTEND Internal Medicine